=== PATIENT | female | born 1975 | race African-American/Black ===

== ENCOUNTER 2016-10-04 22:10 | Emergency (ER) | payer OTHER, MEDICAID ==
[2016-10-04 22:29] VITALS: BP 106/77; BMI 29.3
--- NOTE | 2016-10-04 22:45 | DR.GENAD ---
HPI - PCP Primary Care Physician: Marc JASON - Complaint/Symptoms Chief Complaint:: PATIENT BELIEVES SHE HAD AN ALLERGIC REACTION TO LISINOPRIL. PATIENT STATED," I WOKE UP AND MY LIP WAS SWOLLEN I WAS GASPING FOR AIR. MY THROAT WAS ITCHING AND HAD SEVERE ITCHING ALONG WITH DRY EYES." PT STATED ," I USED MY EPI-PEN AND THE SYMPTOMS GOT BETTER. Self Treatment fo Chief Complaint: PT USED EPI-PEN ABOUT 0 - Nurses notes reviewed Nurses Notes Review: Yes - Source History Provided: Patient - Mode of Arrival Mode of Arrival: Ambulatory - Timing Onset of Chief Complaint: 10/04/16 Came on: Suddenly - Duration Duration: Constant How lon Duration: Hours - Location Location: MOUTH - Severity Severity: Moderate - Modifying Factors Improves:: epi pen - Other History Other History: BETTER AFTER EPI-PEN PMH - PMH Past Medical History: Yes Past Medical History: COPD, Migraines, Hypertension, Seizures Past Medical History Comment: BILATERAL PE, NON-BLEEDING ULCER,CHRONIC BACK PAIN. DIVERTICULITIS. Past Surgical History: Yes Surgical History: Hysterectomy, Mastectomy Past Surgical History Comment: IVC FILTER, 3 BACK SURGERIES, POT-A-CATH,DOUBLE MASECTOMY, BREAST RECONSTRUCTION - Family History History of Family Medical Conditions: Yes Family Medical History: Diabetes Mellitus, Cancer, Heart Failure, Hypertension Family Medical History Comment: CVA - Social History Does patient currently use any type of tobacco product: No Have you used tobacco products in the last 12 months: No Type of Tobacco Use: None Does any household member use tobacco: No Alcohol Use: None Do you use any recreational Drugs:: No Lives With: Alone - infectious screening In the last 2 months have you had wt loss of >10#?: NO Have you had fever, night sweats or hemotysis?: No Have you traveled outside the country in the last 6 months?: No Isolation: Standard ROS - Review of Systems Constitutional: No Symptoms Reported Eyes: Other (SWELLING OF EYES) ENTM: Nose Congestion Respiratoy: Short of Breath Cardiovascular: No Symptoms Reported Gastrointestinal/Abdominal: No Symptoms Reported Genitourinary: No Symptoms Reported Neurological: No Symptoms Reported Musculoskeletal: No Symptoms Reported Integumentary: No Symptoms Reported Hematologic/Lymphatic: No Symptoms Reported Endocrine: No Symptoms Reported Psychiatric: Depression PE - Vital Signs Vitals: Temperature 99.2 F Pulse Rate 123 Respiratory Rate 20 Blood Pressure [Right Calf] 110/69 Blood Pressure [Left Calf] 107/60 Blood Pressure [Right Arm] 120/78 Blood Pressure 106/77 O2 Sat by Pulse Oximetry 100 - General Limitations: No Limitations General Appearance: Alert, In No Apparent Distress - Head Head Exam: Normal Inspection - Eyes Eye exam: Normal Appearance, EOMI. negative: Scleral Icterus, Conjunctival Injection, Periorbital Swelling - ENT ENT Exam: Normal Exam, Normal Oropharynx External Ear Exam: Normal External Inspection Nose Exam: Normal Nose Exam Mouth Exam: Normal Inspection. negative: Lip Swelling, Tongue Swelling Throat Exam: Normal Inspection. negative: Tonsillar Erythema - Neck Neck Exam: Normal Inspection, Full ROM, Trachea Midline - Chest Chest Inspection: Normal Inspection - Respiratory Respiratory Exam: Normal Lung Sounds Bilat. negative: Accessory Muscle Use, Respiratory Distress Respiratory Exam: Bilateral Clear to Auscultation - Cardiovascular Cardiovascular Exam: Regular Rate - Extremities Extremities Exam: Normal Inspection, Full ROM - Neurologic Neurological Exam: Alert, Oriented X3, CN II-XII Intact - Psychiatric Psychiatric Exam: Anxious - Skin Skin Exam: Intact, Normal Color Course - Treatment Treatment: PATIENT RATHER ASYMPTOMATIC IN ER. WILL GIVE PREDNISONE AND BENADRYL TO PREVENT REOCCURRENCE. TOLD TO STOP LISINOPRIL - Diagnosis Discharge Problem: Adverse reaction to lisinopril - Discharge Plan Condition: Stable Prescriptions: Prednisone [Prednisone DS Dosepak 10 mg (12 day)] 1 brittany PO ONCE #1 brittany - Follow ups/Referrals Follow ups/Referrals: MELANY JASON [Primary Care Provider] - 3 days - Instructions
[2016-10-04] MEDS ORDERED: PREDNISONE TAB 20 MG PO ONE ×2 (23:04→23:10)
[2016-10-04] MEDS ORDERED: BENADRYL CAP 50 MG PO ONE (23:05)
[2016-10-04] MEDS ORDERED: ATIVAN TAB 0.5 MG PO ONE (23:05)
[2016-10-04] MEDS ORDERED: BENADRYL CAP/TAB 25 MG PO ONE (23:11)
[2016-10-04] MEDS ORDERED: ATIVAN TAB 0.5 MG ONE (23:11)
== END 2016-10-04 23:40 | disposition home or self-care (01) ==
LOC: ER 22:10
DX: T78.40XA Allergy, unspecified, initial encounter (principal)
CPT/HCPCS: 99282; J7506

== ENCOUNTER 2016-10-08 11:38 | Emergency (ER) | payer OTHER, MEDICAID ==
[2016-10-08 11:44] VITALS: BP 140/88; BMI 28.1
--- NOTE | 2016-10-08 12:16 | DR.ALLERGY ---
HPI - PCP Primary Care Physician: Marc JASON - HPI Comment HPI Comment: HISTORY BELOW. - Complaint/Symptoms Chief Complaint Doctors Comments: ALLERGIC REACTION 3 DAYS AGO. N/V/D FROM [facility] SHE IS TAKING FOR ALLERGIC T REACTION. THROAT SWLLEN. UNABLE TO TAKE RAL MEDS INCLUDING PAIN MED. HAVING SEVERE HEADACHE. HISTORY MIGRAINE HEADACHE. Chief Complaint:: PT. STATES SHE IS HAVING AN ALLERGIC REACTION, STATES HER LIPS & TOUNGE ARE SWELLING AND HER THROAT FEELS TIGHT. - Source History Provided: Patient - Mode of Arrival Mode of Arrival: Ambulatory - Timing Onset of Chief Complaint: 10/06/16 Came on: Suddenly (STARTED 3 DAYS AGO. ON MEDS) - Context Exposed to: Medication, Other (comment) (LISINOPRIL) Developed: Wheezing, Shortness of breath, Difficulty swallowing, Throat swelling , Generalized erythema, Pruritis History of: Urticaria, Prior similar episodes (DUE TO LISINOPRIL) - Location Location: Tongue, Throat - Severity SOB: Moderate Swallowing: Moderate Rash: None Pruritis: Moderate - Modifying factors Improves: Diphenhydramine - Associated signs and symptoms Associated signs and symptoms: Abdominal pain, Chest pain PMH - PMH Past Medical History: Yes Past Medical History: COPD, Migraines, Hypertension, Seizures Past Surgical History: Yes Surgical History: Hysterectomy, Mastectomy Past Surgical History Comment: BILATERAL MASTECTOMY - Family History History of Family Medical Conditions: Yes Family Medical History: Diabetes Mellitus, Cancer, Heart Failure, Hypertension - Social History Does patient currently use any type of tobacco product: No Have you used tobacco products in the last 12 months: No Type of Tobacco Use: None Does any household member use tobacco: No Alcohol Use: None Do you use any recreational Drugs:: No Lives With: Alone Lives Where: Home - infectious screening In the last 2 months have you had wt loss of >10#?: NO Have you had fever, night sweats or hemotysis?: No Have you traveled outside the country in the last 6 months?: No Isolation: Standard ROS - Review of Systems Constitutional: Weakness, Fatigue. negative: Chills, Fever Eyes: No Symptoms Reported. negative: Eye Pain, Discharge ENTM: Mouth Pain, Throat Pain, Throat Swelling. negative: Ear Pain, Nose Discharge Respiratoy: Non-Productive Cough, Short of Breath, Wheezing. negative: Hemoptysis Cardiovascular: Chest Pain. negative: Edema, Palpitations Gastrointestinal/Abdominal: Abdominal Pain, Diarrhea, Nausea, Vomiting Genitourinary: No Symptoms Reported. negative: Dysuria, Frequency, Hematuria Neurological: Headache, Weakness, Dizziness Musculoskeletal: Muscle Pain Integumentary: Itching. negative: Rash Hematologic/Lymphatic: Easy Bruising Endocrine: No Symptoms Reported All Other Systems: Reviewed and Negative PE - Vitals Vital Signs: Temp Pulse Resp BP BP BP BP 10/08/16 11:39 98.2 F 99 H 16 140/88 10/04/16 22:12 106/77 06/27/16 08:00 110/69 06/25/16 16:00 107/60 10/24/13 20:00 120/78 Pulse Ox 10/08/16 11:39 98 10/04/16 22:12 06/27/16 08:00 06/25/16 16:00 10/24/13 20:00 - Constitutional Limitations: No Limitations General Appearance: Alert - Head Head Exam: Normal Inspection - Eyes Eye exam: Normal Appearance - ENT ENT Exam: Normal External Ear Exam Mouth Exam: Normal Inspection Throat Exam: Normal Inspection - Neck Neck Exam: Normal Inspection - Chest Chest Inspection: Normal Inspection - Respiratory Respiratory Exam: Normal Lung Sounds Bilat Respiratory Exam: Bilateral Clear to Auscultation - Cardiovascular Cardiovascular Exam: Regular Rate, Normal Rhythm, Normal Heart Sounds - Abdominal Exam Abdominal Exam: Normal Bowel Sounds, Soft, Tenderness Abdominal Tenderness: Diffuse, Moderate - Extremities Extremities Exam: Normal Inspection - Back Back Exam: Paraspinal Tenderness - Neurologic Neurological Exam: Alert, Oriented X3 - Psychiatric Psychiatric Exam: Anxious - Skin Skin Exam: Dry MDM - Differential Diagnosis Differential diagnosis: Drug reaction (ABDOMINAL PAIN, DIARRHEA), Respiratory insufficiency Course - Treatment Treatment: SEE ORDERS - Education/Counseling Education/Counseling: Patient, Education Educated On: Treatment, Diagnosis, Needs for Follow Up ROR - Labs Reviewed Laboratory Results Reviewed?: Yes Result Diagrams: 10/08/16 12:52 10/08/16 12:52 Laboratory: WBC 8.6 X10^3/uL (3.6-10.0) 10/08/16 12:52 RBC 4.42 X10^6/uL (3.5-5.4) 10/08/16 12:52 Hgb 12.3 g/dL (12.0-16.0) 10/08/16 12:52 Hct 36.9 % (36.0-47.0) 10/08/16 12:52 MCV 83.5 fL (80.0-100.0) 10/08/16 12:52 MCH 27.8 pg (27.0-34.0) 10/08/16 12:52 MCHC 33.2 g/dL (33.0-35.0) 10/08/16 12:52 RDW 14.0 % (11.6-16.5) 10/08/16 12:52 Plt Count 289 X10^3/uL (150.0-450.0) 10/08/16 12:52 MPV 7.6 fL (7.4-11.0) 10/08/16 12:52 Neut % 71.9 % (42.0-75.0) 10/08/16 12:52 Lymph % 22.1 % (21.0-51.0) 10/08/16 12:52 [place] % 4.6 % (0.0-13.0) 10/08/16 12:52 Eos % 1.0 % (0.9-2.9) 10/08/16 12:52 Baso % 0.4 % (0.2-1.0) 10/08/16 12:52 Neut # 6.2 x10^3/uL (2.2-4.8) H 10/08/16 12:52 Lymph # 1.9 X10^3/uL (1.3-2.9) 10/08/16 12:52 [place] # 0.4 x10^3/uL (0.3-0.8) 10/08/16 12:52 Eos # 0.1 x10^3/uL (0.0-0.2) 10/08/16 12:52 Baso # 0.0 X10^3/uL (0.0-0.1) 10/08/16 12:52 Absolute Nucleated RBC 0.0 /100WBC 10/08/16 12:52 Sample Site Right brachial 10/08/16 14:03 ABG pH 7.380 (7.35-7.45) 10/08/16 14:03 ABG pCO2 49.0 mmHg (35.0-45.0) H 10/08/16 14:03 ABG pO2 80.0 mmHg (80.0-100.0) 10/08/16 14:03 ABG HCO3 29.0 mmol/L (22-26) H 10/08/16 14:03 ABG O2 Saturation 95.0 % (90-100) 10/08/16 14:03 ABG Base Excess 3.1 mmol/L (-2.0-2.0) H 10/08/16 14:03 Scot Test Na 10/08/16 14:03 A-a Gradient 8.0 mmHg 10/08/16 14:03 FiO2 21 10/08/16 14:03 Blood Gas Comments [place] well aw 10/08/16 14:03 Sodium 142 mmol/L (136-145) 10/08/16 12:52 Corrected Sodium TNP 10/08/16 12:52 Potassium 3.7 mmol/L (3.5-5.1) 10/08/16 12:52 Chloride 106 mmol/L (98-107) 10/08/16 12:52 Carbon Dioxide 29.6 mmol/L (21-32) 10/08/16 12:52 BUN 12 mg/dL (7-18) 10/08/16 12:52 Creatinine 0.98 mg/dL (0.55-1.02) 10/08/16 12:52 Est GFR (MDRD) Af Amer > 60 (>60) 10/08/16 12:52 Est GFR (MDRD) Non-Af > 60 (>60) 10/08/16 12:52 Glucose 96 mg/dL (65-99) 10/08/16 12:52 Calcium 8.5 mg/dL (8.5-10.1) 10/08/16 12:52 Corrected Calcium TNP 10/08/16 12:52 Total Bilirubin 0.20 mg/dL (0.2-1.0) 10/08/16 12:52 AST 18 Units/L (15-37) 10/08/16 12:52 ALT 23 Units/L (12-78) 10/08/16 12:52 Alkaline Phosphatase 92 Units/L (46-116) 10/08/16 12:52 Total Protein 7.3 g/dL (6.4-8.2) 10/08/16 12:52 Albumin 3.4 g/dL (3.4-5.0) 10/08/16 12:52 Globulin 3.9 g/dL (2.5-4.5) 10/08/16 12:52 Albumin/Globulin Ratio 0.9 Ratio (1.1-2.1) L 10/08/16 12:52 Specimen Type Clean catch urine 10/08/16 13:22 Urine Color Yellow (YELLOW) 10/08/16 13:22 Urine Appearance Hazy (CLEAR) 10/08/16 13:22 Urine pH 6.0 (5.0 - 8.0) 10/08/16 13:22 Ur Specific [place] 1.020 (1.000-1.030) 10/08/16 13:22 Urine Protein Negative (NEGATIVE) 10/08/16 13:22 Urine Glucose (UA) Negative (NEGATIVE) 10/08/16 13:22 Urine Ketones Negative (NEGATIVE) 10/08/16 13:22 Urine Occult Blood Negative (NEGATIVE) 10/08/16 13:22 Urine Nitrite Negative (NEGATIVE) 10/08/16 13:22 Urine Bilirubin Negative (NEGATIVE) 10/08/16 13:22 Urine Urobilinogen Normal (NORMAL) 10/08/16 13:22 Ur Leukocyte Esterase 1+ (NEGATIVE) 10/08/16 13:22 Urine RBC 0 /HPF (NEGATIVE) 10/08/16 13:22 Urine WBC 2-3 /HPF (NEGATIVE) 10/08/16 13:22 Ur Squamous Epith Cells Moderate /HPF (NEGATIVE) 10/08/16 13:22 Urine Bacteria Negative /HPF (NEGATIVE) 10/08/16 13:22 Ur Culture Indicated? No/not indicated 10/08/16 13:22 - XRAY XRAY Interpreted by: Radiologist - Diagnosis Discharge Problem: Abdominal pain, Diarrhea, Allergic reaction - Discharge Plan Disposition: 01 HOME, SELF-CARE Condition: Stable - Follow ups/Referrals Follow ups/Referrals: MELANY JASON [Primary Care Provider] - 3 days - Instructions Instructions: Abdominal Pain, Adult, [id number], Diarrhea, Adult, Easy-to- Read, Allergies, [id number] Additional Instructions: RETURN TO ED IF WORSE. CONTINUE WITH MEDICATIONS AT HOME FOR ALLERGIC REACTION.
[2016-10-08] MEDS ORDERED: NS 1000 ML 1,000 ML IV ONE (12:28)
[2016-10-08] MEDS ORDERED: NS 1000 ML 1,000 ML ONE (12:48)
[2016-10-08 13:05] LABS: BASOPHILS % (AUTO) 0.4 % (0.2-1.0); EOSINOPHILS # (AUTO) 0.1 x10^3/uL (0.0-0.2); HEMATOCRIT 36.9 % (36.0-47.0); HEMOGLOBIN 12.3 g/dL (12.0-16.0); LYMPHOCYTES # (AUTO) 1.9 X10^3/uL (1.3-2.9); LYMPHOCYTES % (AUTO) 22.1 % (21.0-51.0); MEAN CORPUSCULAR HEMOGLOBIN 27.8 pg (27.0-34.0); MEAN CORPUSCULAR HGB CONC 33.2 g/dL (33.0-35.0); MEAN CORPUSCULAR VOLUME 83.5 fL (80.0-100.0); MEAN PLATELET VOLUME 7.6 fL (7.4-11.0); MONOCYTES # (AUTO) 0.4 x10^3/uL (0.3-0.8); MONOCYTES % (AUTO) 4.6 % (0.0-13.0); NEUTROPHILS # (AUTO) 6.2 x10^3/uL (2.2-4.8); NEUTROPHILS % (AUTO) 71.9 % (42.0-75.0); PLATELET COUNT 289 X10^3/uL (150.0-450.0); RED BLOOD COUNT 4.42 X10^6/uL (3.5-5.4); WHITE BLOOD COUNT 8.6 X10^3/uL (3.6-10.0)
[2016-10-08 13:15] LABS: ALANINE AMINOTRANSFERASE 23 Units/L (12-78); ALBUMIN 3.4 g/dL (3.4-5.0); ALKALINE PHOSPHATASE 92 Units/L (46-116); ASPARTATE AMINO TRANSFERASE 18 Units/L (15-37); BLOOD UREA NITROGEN 12 mg/dL (7-18); CALCIUM 8.5 mg/dL (8.5-10.1); CARBON DIOXIDE 29.6 mmol/L (21-32); CHLORIDE 106 mmol/L (98-107); CREATININE 0.98 mg/dL (0.55-1.02); GLUCOSE 96 mg/dL (65-99); SODIUM 142 mmol/L (136-145); TOTAL PROTEIN 7.3 g/dL (6.4-8.2); eGFR BLACK RACES > 60 (>60); eGFR NON BLACK RACES > 60 (>60)
[2016-10-08] MEDS ORDERED: PHENERGAN INJ 25 MG IV ONE (13:28)
[2016-10-08] MEDS ORDERED: DILAUDID INJ IVP ONE (13:29)
[2016-10-08] MEDS ORDERED: DILAUDID INJ ONE (13:37)
[2016-10-08] MEDS ORDERED: PHENERGAN INJ 25 MG ONE (13:37)
--- NOTE | 2016-10-08 13:37 | RAD ---
HISTORY: Abdominal pain and allergic reaction Study: Acute abdominal series Comparison: July 15, 2016 Findings: The trachea is midline. The cardiac silhouette is normal. There is an unchanged Port-A-Cath via the right subclavian vein.. The lungs are clear without focal infiltrate or effusion. The bony thorax is unremarkable. Flat plate and upright evaluation of the abdomen demonstrates a filter in the IVC. The bowel gas pat tern is normal. There are lower lumbar unchanged fusion rods and screws.. No pathological soft tiss ue mass or calcification can be observed. . IMPRESSION: 1. No acute cardiopulmonary disease. 2. No evidence for acute abdominal pathology identified. Reported By:
[2016-10-08 13:52] LABS: BILIRUBIN,URINE NEGATIVE (NEGATIVE); BLOOD/HEMOGLOBIN,URINE NEGATIVE (NEGATIVE); GLUCOSE, URINE NEGATIVE (NEGATIVE); KETONES,URINE NEGATIVE (NEGATIVE); LEUKOCYTE ESTERASE ,URINE 1+ (NEGATIVE); NITRITES,URINE NEGATIVE (NEGATIVE); PROTEIN,URINE NEGATIVE (NEGATIVE); UROBILINOGEN,URINE NORMAL (NORMAL)
[2016-10-08 14:01] LABS: APPEARANCE,URINE HAZY (CLEAR); BACTERIA,URINE NEGATIVE /HPF (NEGATIVE); COLOR,URINE YELLOW (YELLOW); RBC,URINE 0 /HPF (NEGATIVE); SQUAMOUS EPITHELIAL CELL,UR MODERATE /HPF (NEGATIVE)
[2016-10-08 14:16] LABS: ABG BASE EXCESS 3.1 mmol/L (-2.0-2.0); FRACTIONATED INSPIRED OXYGEN 21
== END 2016-10-08 14:34 | disposition home or self-care (01) ==
LOC: ER 11:58
DX: T46.4X5A Adverse effect of angiotensin-converting-enzyme inhibitors, initial encounter (principal); R10.84 Generalized abdominal pain; R19.7 Diarrhea, unspecified
CPT/HCPCS: 36415; 36591; 36600; 74022; 80053; 81001; 82803; 85025; 96365; 96374; 96375; 99283; J1170; J2550

== ENCOUNTER 2016-12-31 22:19 | Emergency (ER) | payer OTHER, MEDICAID ==
[2016-12-31 22:42] VITALS: BP 131/73; BMI 27.5
[2016-12-31] MEDS ORDERED: PHENERGAN INJ 25 MG IV ONE (23:03)
[2016-12-31] MEDS ORDERED: DILAUDID INJ IM ONE (23:03)
--- NOTE | 2016-12-31 23:03 | DR.GENAD ---
HPI - PCP Primary Care Physician: Terri - HPI Comment HPI Comment: PATIENT ON HOME PAIN MEDS. HEADACHE WITH NAUSEA AND PHOTOPHOBIA. UNABLE TO TAKE ORAL PAIN MED. HISTORY MIGRAINE HEADACHE. SHE SAID THIS IS A MIGRAINE ATTACK. HER MUSCLES HURTS AND CHEST ALSO HURTS. NO FEVER. - Complaint/Symptoms Chief Complaint Doctors Comments: PATIENT HAVE HEADACHE AND CHEST PAIN SINCE YESTERDAY. Chief Complaint:: "Last night around 2 AM my head and chest started hurting really bad. I have not taken my meds since ." - Nurses notes reviewed Nurses Notes Review: Yes - Source History Provided: Patient - Mode of Arrival Mode of Arrival: Ambulatory - Timing Onset of Chief Complaint: 12/30/16 Came on: Suddenly - Duration Duration: Constant Duration: Days - Severity Severity: Moderate PMH - PMH Past Medical History: Yes Past Medical History: COPD, Migraines, Hypertension, Seizures Past Surgical History: Yes Surgical History: Hysterectomy, Mastectomy - Family History History of Family Medical Conditions: Yes Family Medical History: Diabetes Mellitus, Cancer, Heart Failure, Hypertension - Social History Does patient currently use any type of tobacco product: No Have you used tobacco products in the last 12 months: No Type of Tobacco Use: None Does any household member use tobacco: No Alcohol Use: None Do you use any recreational Drugs:: No Lives With: Alone Lives Where: Home - infectious screening In the last 2 months have you had wt loss of >10#?: NO Have you had fever, night sweats or hemotysis?: No Have you traveled outside the country in the last 6 months?: No Isolation: Standard ROS - Review of Systems Constitutional: Weakness, Fatigue Eyes: Photophobia ENTM: Nose Congestion. negative: Ear Pain, Nose Discharge, Throat Pain Respiratoy: Non-Productive Cough. negative: Productive Cough, Short of Breath, Wheezing, Hemoptysis Cardiovascular: Chest Pain. negative: Edema, Palpitations, Syncope Gastrointestinal/Abdominal: Abdominal Pain, Nausea. negative: Constipation, Diarrhea, Vomiting Genitourinary: No Symptoms Reported. negative: Dysuria, Frequency, Hematuria Neurological: Headache, Numbness, Weakness, Dizziness Musculoskeletal: Joint Pain, Muscle Pain Integumentary: negative: Rash, Juandice Hematologic/Lymphatic: Easy Bruising Endocrine: No Symptoms Reported All Other Systems: Reviewed and Negative PE - Vital Signs Vitals: Temperature 98.9 F Pulse Rate 105 Respiratory Rate 20 Blood Pressure [Right Calf] 110/69 Blood Pressure [Left Calf] 107/60 Blood Pressure [Right Arm] 120/78 Blood Pressure 131/73 O2 Sat by Pulse Oximetry 100 - General Limitations: No Limitations General Appearance: Alert - Head Head Exam: Normal Inspection - Eyes Eye exam: Normal Appearance - ENT ENT Exam: Normal External Ear Exam External Ear Exam: Normal External Inspection TM/Canal Exam: Bilateral Normal Nose Exam: Normal Nose Exam Mouth Exam: Normal Inspection Throat Exam: Normal Inspection - Neck Neck Exam: Normal Inspection - Chest Chest Inspection: Symmetric Chest Wall Rise - Respiratory Respiratory Exam: Normal Lung Sounds Bilat Respiratory Exam: Bilateral Clear to Auscultation - Cardiovascular Cardiovascular Exam: Regular Rate, Normal Rhythm, Normal Heart Sounds - Abdominal Exam Abdominal Exam: Normal Bowel Sounds, Tenderness Abdominal Tenderness: Diffuse, Mild - Extremities Extremities Exam: Normal Inspection - Back Back Exam: Paraspinal Tenderness, Vertebral Tenderness, Rashes - Neurologic Neurological Exam: Alert, Oriented X3, CN II-XII Intact, Normal Gait, Reflexes Normal - Psychiatric Psychiatric Exam: Anxious - Skin Skin Exam: Erythema MDM - Additional Information Additional Information Obtained From: Family - Differential Diagnosis Differential Diagnosis: MIGTAINE HEADACHE, CHRONIC PAIN, ACUTE EXACERBATION. Course - Treatment Treatment: SEE ORDER. PAIN MED IN ED IV. PAIN IMPROVING. - Education/Counseling Education/Counseling: Patient, Education Educated On: Diagnosis, Needs for Follow Up - Diagnosis Discharge Problem: Chronic pain Qualifiers: Chronic pain type: chronic pain syndrome Qualified Code(s): G89.4 - Chronic pain syndrome Migraine Qualifiers: Migraine type: with aura Status migrainosus presence: with status migrainosus Intractability: intractable Qualified Code(s): G43.111 - Migraine with aura, intractable, with status migrainosus - Discharge Plan Disposition: HOME, SELF-CARE Condition: Stable - Follow ups/Referrals Follow ups/Referrals: DANNI JASON [Primary Care Provider] - 1 day - Instructions Instructions: Migraine Headache, Chronic Pain Additional Instructions: RETURN TO ED IF WORSE. CONTINUE PAIN AT HOME.
[2016-12-31] MEDS ORDERED: DILAUDID INJ ONE (23:10)
[2016-12-31] MEDS ORDERED: PHENERGAN INJ 25 MG ONE (23:10)
[2016-12-31] MEDS ORDERED: DILAUDID INJ IVP ONE (23:11)
[2016-12-31] MEDS ORDERED: BENADRYL INJ 50 MG VIAL ONE (23:31)
[2016-12-31] MEDS ORDERED: BENADRYL INJ 50 MG VIAL IV ONE (23:32)
== END 2017-01-01 00:38 | disposition home or self-care (01) ==
LOC: ER 22:33
DX: G43.111 Migraine with aura, intractable, with status migrainosus (principal); G89.4 Chronic pain syndrome
CPT/HCPCS: 93005; 93010; 96365; 96374; 96375; 99282; 99283; J1170; J1200; J2550

== ENCOUNTER 2017-01-24 05:45 | Emergency (ER) | payer OTHER, MEDICAID ==
[2017-01-24 05:55] VITALS: BP 109/83; BMI 29.2
[2017-01-24 06:39] LABS: BILIRUBIN,URINE NEGATIVE (NEGATIVE); BLOOD/HEMOGLOBIN,URINE NEGATIVE (NEGATIVE); GLUCOSE, URINE NEGATIVE (NEGATIVE); KETONES,URINE NEGATIVE (NEGATIVE); LEUKOCYTE ESTERASE ,URINE 1+ (NEGATIVE); NITRITES,URINE POSITIVE (NEGATIVE); PROTEIN,URINE 1+ (NEGATIVE); UROBILINOGEN,URINE NORMAL (NORMAL)
--- NOTE | 2017-01-24 06:45 | DR.GENAD ---
HPI - PCP Primary Care Physician: MELANY JASON - Complaint/Symptoms Chief Complaint Doctors Comments: I agree with statement. Patient patel states that she is scheduled for an EGD but this has to be delayed because the insurance with not cover her colonoscopy and EGD. She admits to severe LLQ pain w/o radiating. Chief Complaint:: "I WOKE UP IN PAIN, I HAVE BEEN HAVING A LOW GRADE FEVER FOR THE LAST 3-4 DAYS. I AM HAVING ABD PAIN ON MY LEFT SIDE PROBABLY MY DIVERTICULITIS MAYBE A UTI. OH I NEED TO ADD MIGRAINE TO MY COMPLAINTS. I HAVE BEEN HAVING BLACK MUCUS FOR SOME TIME. I DON'T WANT PNEUMONIA BUT HEY I HAVE HAD IT BEFORE. OH AND I AM HAVING SOME SHARP STABBING PAINS ON MY RIGHT SIDE. I CAN'T BREATHE , I JUST FEEL LIKE I AM DROWNING IN MY ON MUCUS. AND OF COURSE THIS IS ALL CAUSING MY CHEST TO BE TIGHT. AND THEN THIS COULD BE JUST MY LUPUS FLARING UP. SINCE THEY HAVE DISCOVERED THIS, IT JUST CHANGES EVERYTHING. MY LIFE " - Source History Provided: Patient - Mode of Arrival Mode of Arrival: Ambulatory - Timing Onset of Chief Complaint: 01/21/17 <VIVIANA HARMON - Last Filed: 01/24/17 08:07> PMH - PMH Past Medical History: Yes Past Medical History: COPD, Migraines, Hypertension, Seizures Past Medical History Comment: lupus Past Surgical History: Yes Surgical History: Hysterectomy, Mastectomy Past Surgical History Comment: BILATERAL MASTECTOMY - Family History History of Family Medical Conditions: Yes Family Medical History: Diabetes Mellitus, Cancer, Heart Failure, Hypertension - Social History Does patient currently use any type of tobacco product: No Have you used tobacco products in the last 12 months: No Type of Tobacco Use: None Does any household member use tobacco: No Alcohol Use: None Do you use any recreational Drugs:: No Lives Where: Home - infectious screening Have you traveled outside the country in the last 6 months?: No Isolation: Standard <VIVIANA HARMON - Last Filed: 01/24/17 08:07> ROS - Review of Systems Constitutional: No Symptoms Reported Eyes: No Symptoms Reported ENTM: No Symptoms Reported Respiratoy: No Symptoms Reported Cardiovascular: No Symptoms Reported Gastrointestinal/Abdominal: No Symptoms Reported Genitourinary: No Symptoms Reported Neurological: No Symptoms Reported Musculoskeletal: No Symptoms Reported Integumentary: No Symptoms Reported Hematologic/Lymphatic: No Symptoms Reported, See HPI Endocrine: No Symptoms Reported Psychiatric: No Symptoms Reported All Other Systems: Reviewed and Negative <VIVIANA HARMON - Last Filed: 01/24/17 08:07> PE - General Limitations: No Limitations General Appearance: Alert, In No Apparent Distress - Head Head Exam: Normal Inspection, Atraumatic - Eyes Eye exam: Normal Appearance, PERRL, EOMI - ENT ENT Exam: Normal Exam External Ear Exam: Normal External Inspection TM/Canal Exam: Bilateral Normal Nose Exam: Normal Nose Exam Mouth Exam: Normal Inspection Throat Exam: Normal Inspection - Neck Neck Exam: Normal Inspection, Full ROM - Chest Chest Inspection: Normal Inspection - Respiratory Respiratory Exam: Normal Lung Sounds Bilat - Cardiovascular Cardiovascular Exam: Regular Rate - Abdominal Exam Abdominal Exam: Normal Inspection, Normal Bowel Sounds, Tenderness (suprapubic) . negative: Distention Abdominal Tenderness: LLQ - Extremities Extremities Exam: Normal Inspection, Full ROM - Back Back Exam: Normal Inspection - Neurologic Neurological Exam: Alert, Oriented X3, CN II-XII Intact - Psychiatric Psychiatric Exam: Normal Affect - Skin Skin Exam: Warm, Dry <VIVIANA HARMON - Last Filed: 01/24/17 08:07> ROR - Labs Reviewed Laboratory Results Reviewed?: Yes (UA: leuk +1,WBC 5-10) Result Diagrams: 01/24/17 07:00 01/24/17 07:00 <VIVIANA HARMON - Last Filed: 01/24/17 08:07> - Labs Reviewed Result Diagrams: 01/24/17 07:00 01/24/17 07:00 <WILLIAM BONILLA - Last Filed: 01/24/17 18:48> - Labs Reviewed Laboratory: WBC 5.5 X10^3/uL (3.6-10.0) 01/24/17 07:00 RBC 4.25 X10^6/uL (3.5-5.4) 01/24/17 07:00 Hgb 12.0 g/dL (12.0-16.0) 01/24/17 07:00 Hct 35.0 % (36.0-47.0) L 01/24/17 07:00 MCV 82.4 fL (80.0-100.0) 01/24/17 07:00 MCH 28.3 pg (27.0-34.0) 01/24/17 07:00 MCHC 34.3 g/dL (33.0-35.0) 01/24/17 07:00 RDW 13.8 % (11.6-16.5) 01/24/17 07:00 Plt Count 239 X10^3/uL (150.0-450.0) 01/24/17 07:00 MPV 7.6 fL (7.4-11.0) 01/24/17 07:00 Neut % 49.8 % (42.0-75.0) 01/24/17 07:00 Lymph % 40.1 % (21.0-51.0) 01/24/17 07:00 [place] % 8.3 % (0.0-13.0) 01/24/17 07:00 Eos % 1.2 % (0.9-2.9) 01/24/17 07:00 Baso % 0.6 % (0.2-1.0) 01/24/17 07:00 Neut # 2.7 x10^3/uL (2.2-4.8) 01/24/17 07:00 Lymph # 2.2 X10^3/uL (1.3-2.9) 01/24/17 07:00 [place] # 0.5 x10^3/uL (0.3-0.8) 01/24/17 07:00 Eos # 0.1 x10^3/uL (0.0-0.2) 01/24/17 07:00 Baso # 0.0 X10^3/uL (0.0-0.1) 01/24/17 07:00 Absolute Nucleated RBC 0.0 /100WBC 01/24/17 07:00 Sodium 140 mmol/L (136-145) 01/24/17 07:00 Corrected Sodium TNP 01/24/17 07:00 Potassium 3.7 mmol/L (3.5-5.1) 01/24/17 07:00 Chloride 103 mmol/L (98-107) 01/24/17 07:00 Carbon Dioxide 32.0 mmol/L (21-32) 01/24/17 07:00 BUN 14 mg/dL (7-18) 01/24/17 07:00 Creatinine 0.91 mg/dL (0.55-1.02) 01/24/17 07:00 Est GFR (MDRD) Af Amer > 60 (>60) 01/24/17 07:00 Est GFR (MDRD) Non-Af > 60 (>60) 01/24/17 07:00 Glucose 94 mg/dL (65-99) 01/24/17 07:00 Calcium 8.6 mg/dL (8.5-10.1) 01/24/17 07:00 Corrected Calcium 9.2 mg/dL (8.5-10.1) 01/24/17 07:00 Total Bilirubin 0.30 mg/dL (0.2-1.0) 01/24/17 07:00 AST 21 Units/L (15-37) 01/24/17 07:00 ALT 25 Units/L (12-78) 01/24/17 07:00 Alkaline Phosphatase 97 Units/L (46-116) 01/24/17 07:00 C-Reactive Protein 44.80 mg/L (0-3.0) H 01/24/17 07:00 Total Protein 7.7 g/dL (6.4-8.2) 01/24/17 07:00 Albumin 3.3 g/dL (3.4-5.0) L 01/24/17 07:00 Globulin 4.4 g/dL (2.5-4.5) 01/24/17 07:00 Albumin/Globulin Ratio 0.8 Ratio (1.1-2.1) L 01/24/17 07:00 Amylase 121 Units/L (25-115) H 01/24/17 07:00 Lipase 126 Units/L (73-393) 01/24/17 07:00 Specimen Type Clean catch urine 01/24/17 06:19 Urine Color Yellow (YELLOW) 01/24/17 06:19 Urine Appearance Hazy (CLEAR) 01/24/17 06:19 Urine pH 7.0 (5.0 - 8.0) 01/24/17 06:19 Ur Specific [place] 1.010 (1.000-1.030) 01/24/17 06:19 Urine Protein 1+ (NEGATIVE) 01/24/17 06:19 Urine Glucose (UA) Negative (NEGATIVE) 01/24/17 06:19 Urine Ketones Negative (NEGATIVE) 01/24/17 06:19 Urine Occult Blood Negative (NEGATIVE) 01/24/17 06:19 Urine Nitrite Positive (NEGATIVE) 01/24/17 06:19 Urine Bilirubin Negative (NEGATIVE) 01/24/17 06:19 Urine Urobilinogen Normal (NORMAL) 01/24/17 06:19 Ur Leukocyte Esterase 1+ (NEGATIVE) 01/24/17 06:19 Urine RBC 0-3 /HPF (NEGATIVE) 01/24/17 06:19 Urine WBC 5-10 /HPF (NEGATIVE) 01/24/17 06:19 Ur Squamous Epith Cells Moderate /HPF (NEGATIVE) 01/24/17 06:19 Urine Bacteria 1+ /HPF (NEGATIVE) 01/24/17 06:19 Ur Culture Indicated? Yes/culture set up 01/24/17 06:19 (WILLIAM BONILLA) <VIVIANA HARMON - Last Filed: 01/24/17 08:07> <WILLIAM BONILLA - Last Filed: 01/24/17 18:48> - Diagnosis Discharge Problem: Colitis - Discharge Plan Disposition: 01 HOME, SELF-CARE Condition: Stable Prescriptions: Sulfamethoxazole-Trimethoprim [BACTRIM DS TAB 800/160 MG *] 1 tab PO BID #20 tab - Follow ups/Referrals Follow ups/Referrals: MELANY JASON [Primary Care Provider] - 3 days - Instructions Instructions: Urinary Tract Infection, [id number], Urinary Tract Infection, Flank Pain, [id number]
[2017-01-24 07:04] LABS: APPEARANCE,URINE HAZY (CLEAR); BACTERIA,URINE 1+ /HPF (NEGATIVE); COLOR,URINE YELLOW (YELLOW); RBC,URINE 0-3 /HPF (NEGATIVE); SQUAMOUS EPITHELIAL CELL,UR MODERATE /HPF (NEGATIVE)
[2017-01-24] MEDS ORDERED: D5 NS 1000 ML 1,000 ML IV ONE (07:09)
[2017-01-24 07:22] LABS: BASOPHILS % (AUTO) 0.6 % (0.2-1.0); EOSINOPHILS # (AUTO) 0.1 x10^3/uL (0.0-0.2); EOSINOPHILS % (AUTO) 1.2 % (0.9-2.9); LYMPHOCYTES # (AUTO) 2.2 X10^3/uL (1.3-2.9); LYMPHOCYTES % (AUTO) 40.1 % (21.0-51.0); MEAN CORPUSCULAR HEMOGLOBIN 28.3 pg (27.0-34.0); MEAN CORPUSCULAR HGB CONC 34.3 g/dL (33.0-35.0); MEAN CORPUSCULAR VOLUME 82.4 fL (80.0-100.0); MEAN PLATELET VOLUME 7.6 fL (7.4-11.0); MONOCYTES # (AUTO) 0.5 x10^3/uL (0.3-0.8); MONOCYTES % (AUTO) 8.3 % (0.0-13.0); NEUTROPHILS # (AUTO) 2.7 x10^3/uL (2.2-4.8); NEUTROPHILS % (AUTO) 49.8 % (42.0-75.0); PLATELET COUNT 239 X10^3/uL (150.0-450.0); RED BLOOD COUNT 4.25 X10^6/uL (3.5-5.4); RED CELL DISTRIBUTION WIDTH 13.8 % (11.6-16.5); WHITE BLOOD COUNT 5.5 X10^3/uL (3.6-10.0)
[2017-01-24 07:33] LABS: ALANINE AMINOTRANSFERASE 25 Units/L (12-78); ALBUMIN 3.3 g/dL (3.4-5.0); ALKALINE PHOSPHATASE 97 Units/L (46-116); AMYLASE 121 Units/L (25-115); ASPARTATE AMINO TRANSFERASE 21 Units/L (15-37); BLOOD UREA NITROGEN 14 mg/dL (7-18); CALCIUM 8.6 mg/dL (8.5-10.1); CHLORIDE 103 mmol/L (98-107); COR CA(FOR HYPOALB) 9.2 mg/dL (8.5-10.1); CREATININE 0.91 mg/dL (0.55-1.02); GLUCOSE 94 mg/dL (65-99); LIPASE 126 Units/L (73-393); SODIUM 140 mmol/L (136-145); TOTAL PROTEIN 7.7 g/dL (6.4-8.2); eGFR BLACK RACES > 60 (>60); eGFR NON BLACK RACES > 60 (>60)
[2017-01-24] MEDS ORDERED: DEMEROL INJ IVP ONE (07:33)
[2017-01-24] MEDS ORDERED: PHENERGAN INJ 25 MG IV ONE (07:34)
[2017-01-24] MEDS ORDERED: PHENERGAN INJ 25 MG ONE (07:35)
[2017-01-24] MEDS ORDERED: DEMEROL INJ ONE (07:35)
[2017-01-24] MEDS ORDERED: MORPHINE SULFATE INJ 4 MG IVP ONE (07:39)
[2017-01-24] MEDS ORDERED: MORPHINE SULFATE INJ 4 MG ONE (07:40)
--- NOTE | 2017-01-24 08:38 | CT ---
CT abdomen pelvis without contrast Clinical indication: Left lower quadrant pain x3 days. Technique: CT images of the abdomen and pelvis were obtained without contrast. Reformatted images in the coronal and sagittal planes were also generated for review. Comparison: May 31, 2015 Findings: The visualized lung bases appear clear. There is no significant pleural or pericardial effusion. Par tially visualized bilateral breast implants are noted. Posterior fusion hardware at the lumbosacral junction is present. There is patchy sclerosis of the bilateral femoral heads, suggestive of osteone crosis without articular collapse or significant arthropathy of either hip. Within the limits of a noncontrast exam, the liver, gallbladder, spleen, pancreas, adrenals and kidn eys are unremarkable. There is colonic diverticulosis with mild pericolonic inflammatory stranding a bout the mid-descending colon, compatible with acute diverticulitis. No associated abscess or eviden ce of micro perforation. Remaining GI tract, including the appendix appears normal. An IVC filter appears well positioned within the infrarenal IVC. Urinary bladder is normal. Patient is post hysterectomy. No free air, free fluid or lymphadenopathy seen. Impression: Findings compatible with acute uncomplicated diverticulitis of the mid descending colon. Stable patchy sclerosis of the bilateral femoral heads, suggestive of osteonecrosis without subchond ral collapse. Additional ancillary findings as above. Reported By:
[2017-01-24] MEDS ORDERED: BACTRIM DS TAB PO ONE ×2 (09:07→09:09)
== END 2017-01-24 09:19 | disposition home or self-care (01) ==
LOC: ER 05:45
DX: K52.89 Other specified noninfective gastroenteritis and colitis (principal); B96.29 Other Escherichia coli [E. coli] as the cause of diseases classified elsewhere
CPT/HCPCS: 36415; 74176; 80053; 81001; 82150; 83690; 85025; 86140; 87086; 87088; 87186; 96365; 96374; 96375; 99283; J2175; J2270; J2550

== ENCOUNTER 2017-01-31 07:18 | Day surgery (SDC) | payer OTHER, MEDICAID ==
[2017-01-31] MEDS ORDERED: NS 1000 ML 1,000 ML ONE (07:26)
[2017-01-31] MEDS ORDERED: BENADRYL INJ 50 MG VIAL ONE (07:53)
[2017-01-31] MEDS ORDERED: DIPRIVAN VIAL 20 ML ONE (09:24)
[2017-01-31 10:03] VITALS: BP 115/78
== END 2017-01-31 10:03 | disposition home or self-care (01) ==
LOC: SURG1 07:18
PROVIDERS: ATTEND Internal Medicine Gastroenterology
PROC: 0D757ZZ Dilation of Esophagus, Via Natural or Artificial Opening (ICD-10-PCS; principal; 2017-01-31 09:45)
PROC: 0DB68ZX Excision of Stomach, Via Natural or Artificial Opening Endoscopic, Diagnostic (ICD-10-PCS; principal; 2017-01-31 09:45)
PROC: 0DB88ZX Excision of Small Intestine, Via Natural or Artificial Opening Endoscopic, Diagnostic (ICD-10-PCS; principal; 2017-01-31 09:45)
PROC: 0DB58ZX Excision of Esophagus, Via Natural or Artificial Opening Endoscopic, Diagnostic (ICD-10-PCS; principal; 2017-01-31 09:45)
PROC: 0DJ08ZZ Inspection of Upper Intestinal Tract, Via Natural or Artificial Opening Endoscopic (ICD-10-PCS; principal; 2017-01-31 09:45)
DX: R13.19 Other dysphagia (principal); R10.13 Epigastric pain; R11.0 Nausea; K21.9 Gastro-esophageal reflux disease without esophagitis; R19.7 Diarrhea, unspecified; B37.81 Candidal esophagitis; K22.2 Esophageal obstruction; K29.60 Other gastritis without bleeding
CPT/HCPCS: A4217; J1200; J3490

== ENCOUNTER 2017-03-07 09:05 | Day surgery (SDC) | payer OTHER, MEDICAID ==
[2017-03-07] MEDS ORDERED: D5 LR 1000 ML 1,000 ML IV ONE (09:32)
[2017-03-07] MEDS ORDERED: DIPRIVAN VIAL 20 ML ONE (10:15)
[2017-03-07] MEDS ORDERED: ZOFRAN INJ 4 MG VIAL ONE (10:17)
[2017-03-07 11:13] VITALS: BP 111/72
== END 2017-03-07 11:05 | disposition home or self-care (01) ==
LOC: SURG1 09:05
PROVIDERS: ATTEND Internal Medicine Gastroenterology
PROC: 0DBE8ZX Excision of Large Intestine, Via Natural or Artificial Opening Endoscopic, Diagnostic (ICD-10-PCS; principal; 2017-03-07 07:30)
PROC: 0DJD8ZZ Inspection of Lower Intestinal Tract, Via Natural or Artificial Opening Endoscopic (ICD-10-PCS; principal; 2017-03-07 07:30)
DX: R19.4 Change in bowel habit (principal); R10.31 Right lower quadrant pain; R10.32 Left lower quadrant pain; K92.1 Melena; K57.30 Diverticulosis of large intestine without perforation or abscess without bleeding; K64.0 First degree hemorrhoids
CPT/HCPCS: A4217; J2405; J3490; J7120

== ENCOUNTER 2017-03-16 00:16 | Emergency (ER) | payer OTHER, MEDICAID ==
[2017-03-16 00:26] VITALS: BP 105/67; BMI 28.5
[2017-03-16] MEDS ORDERED: ATARAX TAB 25 MG PO ONE ×2 (00:52→01:05)
[2017-03-16] MEDS ORDERED: KEFLEX CAP 500 MG PO ONE ×2 (00:53→01:04)
[2017-03-16] MEDS ORDERED: ZANTAC PO STA (00:53)
[2017-03-16] MEDS ORDERED: BACTRIM DS TAB PO ONE ×2 (00:54→01:05)
[2017-03-16] MEDS ORDERED: MOTRIN TAB 400 MG PO STA (00:55)
--- NOTE | 2017-03-16 00:59 | DR.GENAD ---
HPI - Complaint/Symptoms Chief Complaint Doctors Comments: Patient complains of area redness, itching and pain on her right arm all day long. States she thinks she was bit by a spider but she did not see a spider. states initially she thought she was stung by a mosquito because that is what it felt like and she started to itch. States she has taken Benadryl 100mg today for the itching. She denies fever, chills, nausea or vomiting. States she can take Aleve and ADvil and motrin without problems but she is allergic to most other pain medicines and the only safe thing they could give her for pain is Morphine. States she is a patient of [facility] and she is not sure when she had her last tetanus shot. States she is not going to take a tetanus shot tonight because they hurt. States she had Septra recently and it made her have yeast infection in her mouth. States she has had several back surgeries. States she is having problems with the itching and pain in her right arm. Chief Complaint:: POSSIBLE SPIDER BITE. RED AREA NOTED ON RT UPPER ARM. 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 negative: See HPI, Chills, Diaphoresis, Fever, Malaise, Weakness, Irritable, Fatigue, Loss of Appetite, Other Eyes: No Symptoms Reported ENTM: No Symptoms Reported. negative: See HPI, Ear Pain, Ear Discharge, Pulling on Ears, Hearing Loss, Nose Pain, Nose Discharge, Epistaxis, Nose Congestion, Mouth Pain, Mouth Swelling, Loose Teeth, Drooling, Throat Pain, Throat Swelling, Ear Foreign Body Respiratoy: No Symptoms Reported. negative: See HPI, Productive Cough, Non- Productive Cough, Moist Cough, Dry Cough, Hacking Cough, Barking Cough, Brassy Cough, Orthopnea, Short of Breath, Stridor, Wheezing, Hemoptysis, Other Cardiovascular: No Symptoms Reported. negative: See HPI, Chest Pain, Edema, Palpitations, Syncope, Cyanosis, Skin Mottling, Other Gastrointestinal/Abdominal: No Symptoms Reported. negative: See HPI, Abdominal Pain, Constipation, Diarrhea, Nausea, Vomiting, Food Intolerance, Other Genitourinary: No Symptoms Reported. negative: See HPI, Discharge, Dysuria, Frequency, Hematuria, Pain, Bleeding, Other Neurological: No Symptoms Reported Musculoskeletal: No Symptoms Reported, Right, Arm (6 cm area erythma with papule in center; no discharge) Integumentary: No Symptoms Reported, Change in Color, Rash, Itching (right arm with area erythema,upper arm) Hematologic/Lymphatic: No Symptoms Reported Endocrine: No Symptoms Reported Psychiatric: No Symptoms Reported PE - Vital Signs Vitals: Temperature 98.0 F Pulse Rate 98 Respiratory Rate 17 Blood Pressure [Right Calf] 110/69 Blood Pressure [Left Calf] 107/60 Blood Pressure [Right Arm] 120/78 Blood Pressure 105/67 O2 Sat by Pulse Oximetry 99 - General Limitations: No Limitations General Appearance: Alert, In No Apparent Distress - Head Head Exam: Normal Inspection, Atraumatic, Normocephalic - Eyes Eye exam: Normal Appearance, PERRL, EOMI. negative: Scleral Icterus, Conjunctival Injection, Nystagmus, Miosis, Mydrasis, Periorbital Swelling, Periorbital Tenderness, Other - ENT ENT Exam: Normal Exam, Normal Oropharynx, Normal External Ear Exam, Mucous Membranes Moist, TM's Normal Bilaterally External Ear Exam: Normal External Inspection TM/Canal Exam: Bilateral Normal Nose Exam: Normal Nose Exam Mouth Exam: Normal Inspection. negative: Drooling, Trismus, Lip Swelling, Tongue Elevation, Tongue Swelling, Laceration, Other Throat Exam: Normal Inspection - Neck Neck Exam: Normal Inspection, Full ROM, Trachea Midline. negative: Tenderness, Meningismus, Lymphadenopathy, Thyromegaly, Other - Chest Chest Inspection: Normal Inspection, Symmetric Chest Wall Rise. negative: Tenderness, Rash, Abscess, Other - Respiratory Respiratory Exam: Normal Lung Sounds Bilat Respiratory Exam: Bilateral Clear to Auscultation - Cardiovascular Cardiovascular Exam: Regular Rate, Normal Rhythm, Normal Heart Sounds - Abdominal Exam Abdominal Exam: Normal Inspection, Normal Bowel Sounds, Soft Abdominal Tenderness: negative: RUQ, RLQ, LUQ, LLQ, Epigastrium, Suprapubic, Diffuse, Mild, Moderate, Severe, Other - Extremities Extremities Exam: Normal Inspection, Full ROM, Normal Capillary Refill. negative: Tenderness (right arm with 6 cm area erythema, firm, macular lesion) - Back Back Exam: Normal Inspection, Full ROM - Neurologic Neurological Exam: Alert, Oriented X3, CN II-XII Intact, Normal Gait, Reflexes Normal - Psychiatric Psychiatric Exam: Normal Affect, Normal Mood - Skin Skin Exam: Warm, Dry, Intact, Normal Color, Rash (right upper arm on biceps; macular area erythema 6x8 cm; no discharge), Erythema - Diagnosis Discharge Problem: Cellulitis of right upper arm, possible insect bite - Discharge Plan Disposition: HOME, SELF-CARE Condition: Stable Prescriptions: Cephalexin [KEFLEX CAP 500 MG *] 500 mg PO TID #30 cap Fluconazole [DIFLUCAN TAB 150 MG *] 150 mg PO ONCE #2 tab Hydroxyzine HCl 25 mg Tab [ATARAX *] 25 mg PO Q8H PRN #30 tab PRN Reason: Allergy/Itching Sulfamethoxazole-Trimethoprim [BACTRIM DS TAB 800/160 MG *] 1 tab PO BID #20 tab - Follow ups/Referrals Follow ups/Referrals: MELANY MURRAY [Primary Care Provider] - 3 days - Instructions Instructions: Cellulitis, Adult, [id number], Pruritus, Angioedema, Easy-to- Read
[2017-03-16] MEDS ORDERED: CLARITIN PO SCH (01:00)
[2017-03-16] MEDS ORDERED: CLARITIN ONE (01:04)
[2017-03-16] MEDS ORDERED: ZANTAC PO ONE (01:04)
[2017-03-16] MEDS ORDERED: MOTRIN TAB 400 MG PO ONE ×2 (01:05→01:14)
[2017-03-16] MEDS ORDERED: HYDROCORTISONE CRM 1% TOP PRN (01:21)
[2017-03-16] MEDS ORDERED: HYDROCORTISONE CRM 1% ONE (01:21)
== END 2017-03-16 01:25 | disposition home or self-care (01) ==
LOC: ER 00:16
DX: L03.113 Cellulitis of right upper limb (principal)
CPT/HCPCS: 99282

== ENCOUNTER 2017-04-21 15:48 | Emergency (ER) | payer OTHER, MEDICAID ==
[2017-04-21 15:54] VITALS: BP 133/97; BMI 27.2
--- NOTE | 2017-04-21 16:08 | DR.GENAD ---
HPI - PCP Primary Care Physician: EREN - HPI Comment HPI Comment: HISTORY BELOW. - Complaint/Symptoms Chief Complaint Doctors Comments: HEADACHE ON AND OFF TIMES WEEKS. PAST 3 DAYS, HOME MEDICATION IS NOT WORKING.THE VISUAL SYMTOMS ASSOCIATED WITH HER MIGRAINE IS GETTING WORSE WELL. NO FEVER. Chief Complaint:: PT C/O MIAGRAINE, FALLING, BLURRED VISION, NAUSEA. PT STATES THESE SYMPTOMS HAVE BEEN GOING ON FOR 3 WEEKS. - Nurses notes reviewed Nurses Notes Review: Yes - Source History Provided: Patient - Mode of Arrival Mode of Arrival: Ambulatory - Timing Onset of Chief Complaint: 03/31/17 Came on: Suddenly - Duration Duration: Constant Duration: Hours - Severity Severity: Moderate PMH - PMH Past Medical History: Yes Past Medical History: Anxiety, COPD, Depression, GERD, Headaches, Kidney Stones , Seizures, Sleep Apnea Past Surgical History: Yes Surgical History: ACTOR UNDERSTUDY Surgery, Hysterectomy, Mastectomy, Ortho Surgery - Family History History of Family Medical Conditions: Yes Family Medical History: Diabetes Mellitus, Cancer, [place] - Social History Does any household member use tobacco: No Alcohol Use: None Do you use any recreational Drugs:: No Lives With: Alone Lives Where: Home - infectious screening In the last 2 months have you had wt loss of >10#?: NO Have you had fever, night sweats or hemotysis?: No Have you traveled outside the country in the last 6 months?: No Isolation: Standard ROS - Review of Systems Constitutional: No Symptoms Reported Eyes: Blurred Vision, Photophobia ENTM: No Symptoms Reported Respiratoy: No Symptoms Reported Cardiovascular: No Symptoms Reported Gastrointestinal/Abdominal: No Symptoms Reported Genitourinary: No Symptoms Reported Neurological: Headache, Dizziness, Other (ATAXIA) Musculoskeletal: No Symptoms Reported Integumentary: No Symptoms Reported Hematologic/Lymphatic: No Symptoms Reported Endocrine: No Symptoms Reported All Other Systems: Reviewed and Negative PE - Vital Signs Vitals: Temperature 98.3 F Pulse Rate 86 Respiratory Rate 18 Blood Pressure [Right Calf] 110/69 Blood Pressure [Left Calf] 107/60 Blood Pressure [Right Arm] 120/78 Blood Pressure 133/97 O2 Sat by Pulse Oximetry 100 - General Limitations: No Limitations General Appearance: Alert - Head Head Exam: Normal Inspection - Eyes Eye exam: Normal Appearance - ENT ENT Exam: Normal External Ear Exam External Ear Exam: Normal External Inspection TM/Canal Exam: Bilateral Normal Nose Exam: Normal Nose Exam Mouth Exam: Normal Inspection Throat Exam: Normal Inspection - Neck Neck Exam: Normal Inspection - Chest Chest Inspection: Symmetric Chest Wall Rise - Respiratory Respiratory Exam: Normal Lung Sounds Bilat Respiratory Exam: Bilateral Clear to Auscultation - Cardiovascular Cardiovascular Exam: Regular Rate, Normal Rhythm, Normal Heart Sounds - Abdominal Exam Abdominal Exam: Normal Bowel Sounds, Soft. negative: Tenderness - Extremities Extremities Exam: Normal Inspection - Back Back Exam: Normal Inspection - Neurologic Neurological Exam: Alert, Oriented X3 - Psychiatric Psychiatric Exam: Normal Affect, Normal Mood - Skin Skin Exam: Normal Color MDM - Differential Diagnosis Differential Diagnosis: MIGRAINE Course - Treatment Treatment: SEE ORDERS. PAIN MED IN ED. PAIN IMPROVED. - Reevaluation 1st: Improved - Education/Counseling Education/Counseling: Patient, Education Educated On: Treatment, Diagnosis, Needs for Follow Up - Diagnosis Discharge Problem: Migraines Qualifiers: Migraine type: with aura Status migrainosus presence: without status migrainosus Intractability: intractable Qualified Code(s): G43.119 - Migraine with aura, intractable, without status migrainosus - Discharge Plan Disposition: HOME, SELF-CARE Condition: Stable Prescriptions: Promethazine HCl [PHENERGAN TAB 25 MG *] 25 mg PO Q6H PRN #20 tab PRN Reason: Nausea/Vomiting - Follow ups/Referrals Follow ups/Referrals: MELANY JASON [Primary Care Provider] - 3 days - Instructions Instructions: Migraine Headache, [id number] Additional Instructions: RETURN TO ED IF WORSE.
[2017-04-21] MEDS ORDERED: MORPHINE SULFATE INJ 4 MG IVP ONE (16:13)
[2017-04-21] MEDS ORDERED: PHENERGAN INJ 25 MG IV ONE (16:14)
[2017-04-21] MEDS ORDERED: PHENERGAN INJ 25 MG ONE (16:16)
[2017-04-21] MEDS ORDERED: MORPHINE SULFATE INJ 4 MG ONE (16:17)
== END 2017-04-21 17:24 | disposition home or self-care (01) ==
LOC: ER 16:03
DX: G43.119 Migraine with aura, intractable, without status migrainosus (principal)
CPT/HCPCS: 96365; 96374; 96375; 99282; 99283; J2270; J2550

== ENCOUNTER 2017-04-26 23:22 | Emergency (ER) | payer OTHER, MEDICAID ==
[2017-04-26 23:27] VITALS: BP 126/75; BMI 28.8
[2017-04-26] MEDS ORDERED: REGLAN INJ 10 MG VIAL IV STA (23:57)
[2017-04-26] MEDS ORDERED: BENADRYL INJ 50 MG VIAL IM ONE (23:58)
[2017-04-26] MEDS ORDERED: PHENERGAN INJ 25 MG IM ONE (23:59)
--- NOTE | 2017-04-27 | DR.HEADACH ---
HPI - Time Seen Time seen: 23:57 - Primary Care Physician Primary Care Physician: darrell - Complaint/Symptoms Chief Complaint Doctors Comments: Patient complains of headache for the past month with left side pain getting worst today. States she has taken a Fiorocet earlier today but nothing recently. She has been nauseated but has not taken any phenergan. states she saw Dr. Barth earlier this week and he wanted to give her an epidoria but she was allergic to the medicine and she is to try botox again. states he ordered an MRI scan but she has not heard from them to schedule the test. States she was her on 04/22 with pain on the left side but now it is on the right side and she is having problems with blurred vision, problems with her balance and nausea. States she walked from her apartment to the emergency room [facility]. states this is one of the worst headache of her life. She is taking Estradiol 2mg daily because she cannot deal with the hot flashes. She denies any recent trauma. She denies chest pain or SOB. Chief Complaint:: migraine for a month Pertinent History: Headache - Reviewed Nurses Notes Reviewed: Yes - Source History Provided: Patient - Mode of Arrival Mode of Arrival: Ambulatory - Timing Onset of Chief Complaint: 04/26/17 - Duration Since Onset: Intermittent How lon Duration: Weeks - Location Headache Location: Generalized, Frontal, Temporal - Quality Quality: Sharp - Severity Headache Severity: Like Previous Headaches - Context Headache Onset Circumstances: Spontaneous History of: None Prior Work Up: CT, Neurologist - Modifying Factors Improves With: Nothing Worsens: Head Movement, Head Position, Light - Associated Signs and Symptoms Associated Symptoms: Nausea, Photophobia, Blurred Vision PMH - PMH Past Medical History: Yes Past Medical History: Anxiety, COPD, Depression, GERD, Headaches, Kidney Stones , Seizures, Sleep Apnea Past Surgical History: Yes Surgical History: ACCOUNTING RECRUITER Surgery, Hysterectomy, Mastectomy, Ortho Surgery - Family History History of Family Medical Conditions: Yes Family Medical History: Diabetes Mellitus, Cancer, [place] - Social History Does patient currently use any type of tobacco product: No Have you used tobacco products in the last 12 months: No Type of Tobacco Use: None Do you use any recreational Drugs:: No Lives Where: Home - infectious screening Have you traveled outside the country in the last 6 months?: No Isolation: Standard ROS - Review of Systems Constitutional: No Symptoms Reported. negative: See HPI, Chills, Diaphoresis, Fever, Malaise, Weakness, Irritable, Fatigue, Loss of Appetite, Other Eyes: No Symptoms Reported, Blurred Vision, Photophobia, Diplopia. negative: See HPI, Eye Pain, Tearing, Discharge, Other ENTM: No Symptoms Reported. negative: See HPI, Ear Pain, Ear Discharge, Pulling on Ears, Hearing Loss, Nose Pain, Nose Discharge, Epistaxis, Nose Congestion, Mouth Pain, Mouth Swelling, Loose Teeth, Drooling, Throat Pain, Throat Swelling, Ear Foreign Body Respiratoy: No Symptoms Reported. negative: See HPI, Productive Cough, Non- Productive Cough, Moist Cough, Dry Cough, Hacking Cough, Barking Cough, Brassy Cough, Orthopnea, Short of Breath, Stridor, Wheezing, Hemoptysis, Other Cardiovascular: No Symptoms Reported. negative: See HPI, Chest Pain, Edema, Palpitations, Syncope, Cyanosis, Skin Mottling, Other Genitourinary: No Symptoms Reported Neurological: No Symptoms Reported, Headache Musculoskeletal: No Symptoms Reported Integumentary: No Symptoms Reported Hematologic/Lymphatic: See HPI, Blood Clots Endocrine: No Symptoms Reported. negative: See HPI, Excessive Sweating, Flushing, Intolerance to Cold, Intolerance to Heat, Increased Hunger, Increased Thirst, Increased Urine, Unexplained Weight Gain, Unexplained Weight Loss, Failure to Thrive, Decreased Appetite, Other Psychiatric: No Symptoms Reported PE - Vital Signs Vitals: Temperature 98.5 F Pulse Rate 100 Respiratory Rate 16 Blood Pressure [Right Calf] 110/69 Blood Pressure [Left Calf] 107/60 Blood Pressure [Right Arm] 120/78 Blood Pressure 126/75 O2 Sat by Pulse Oximetry 100 - General Limitations: No Limitations General Appearance: Alert, In Distress (mild distress) - Head Head Exam: Normal Inspection, Atraumatic, Normocephalic - Eyes Eye exam: Normal Appearance, PERRL, EOMI. negative: Scleral Icterus, Conjunctival Injection, Nystagmus, Miosis, Mydrasis, Periorbital Swelling, Periorbital Tenderness, Other Eyelids: Normal Inspection: Left Pupils: Regular, Round: Bilateral Sclera/Conjunctival: Normal Inspection: Bilateral - ENT ENT Exam: Normal Exam, Normal Oropharynx, Normal External Ear Exam, Mucous Membranes Moist, TM's Normal Bilaterally External Ear Exam: Normal External Inspection TM/Canal Exam: Bilateral Normal Nose Exam: Normal Nose Exam Mouth Exam: Normal Inspection Teeth Exam: Normal Inspection. negative: Dental Caries, Fractured Tooth #, Dental Tenderness #, Gingival Swelling, Other Throat Exam: Normal Inspection - Neck Neck Exam: Normal Inspection, Full ROM, Trachea Midline, Tenderness (right temporal tenderness). negative: Meningismus, Lymphadenopathy, Thyromegaly, Other - Chest Chest Inspection: Normal Inspection, Symmetric Chest Wall Rise - Respiratory Respiratory Exam: Normal Lung Sounds Bilat Respiratory Exam: Bilateral Clear to Auscultation - Cardiovascular Cardiovascular Exam: Regular Rate, Normal Rhythm, Normal Heart Sounds - Abdominal Exam Abdominal Exam: Normal Inspection, Normal Bowel Sounds, Soft Abdominal Tenderness: negative: RUQ, RLQ, LUQ, LLQ, Epigastrium, Suprapubic, Diffuse, Mild, Moderate, Severe, Other - Extremities Extremities Exam: Normal Inspection, Full ROM, Normal Capillary Refill. negative: Tenderness, Edema, Joint Swelling, Calf Tenderness, Other - Back Back Exam: Normal Inspection, Full ROM. negative: Tenderness, (R) CVA Tenderness, (L) CVA Tenderness, Muscle Spasm, Paraspinal Tenderness, Vertebral Tenderness, Rashes, (R) Sciatic Notch Tenderness, (L) Sciatic Notch Tendern, (R ) Straight Leg Raise, (L) Straight Leg Raise, Other - Neurologic Neurological Exam: Alert, Oriented X3, CN II-XII Intact, Normal Gait, Reflexes Normal - Psychiatric Psychiatric Exam: Normal Affect, Normal Mood - Skin Skin Exam: Warm, Dry, Intact, Normal Color. negative: Rash, Cyanosis, Diaphoresis, Erythema, Pallor, Mottled, Other ROR - Labs Reviewed Laboratory Results Reviewed?: Yes (all x-ray results reviewed and discussed with patient) - XRAY XRAY Interpreted by: Radiologist (CT head: Normal brain CT examination.) - Diagnosis Discharge Problem: Headache, History of seizures, [place] usage - Discharge Plan Disposition: 01 HOME, SELF-CARE Condition: Stable - Follow ups/Referrals Follow ups/Referrals: MELANY JASON [Primary Care Provider] - 3 days - Instructions Instructions: Migraine Headache, [id number]
[2017-04-27] MEDS ORDERED: PHENERGAN INJ 25 MG ONE (00:01)
[2017-04-27] MEDS ORDERED: REGLAN INJ 10 MG VIAL ONE (00:01)
[2017-04-27] MEDS ORDERED: BENADRYL INJ 50 MG VIAL ONE (00:01)
--- NOTE | 2017-04-27 00:45 | CT ---
EXAM: CT BRAIN WITHOUT CONTRAST INDICATION: Headache COMPARISION: No Priors TECHNIQUE: Routine axial CT of the brain was performed without intravenous contrast. FINDINGS: The cerebral and cerebellar cortex are normal. The ventricular system is nondilated. No intra or extr a-axial mass or hemorrhage. The lopez-white junction is preserved. There is no evidence of subacute is chemic change. The basilar cisterns are clear. The skull is intact. The mastoid air cells are clear. IMPRESSION: Normal brain CT examination Reported By:
== END 2017-04-27 01:13 | disposition home or self-care (01) ==
LOC: ER 23:30
DX: R51 Headache (principal); Z86.69 Personal history of other diseases of the nervous system and sense organs; Z79.01 Long term (current) use of anticoagulants
CPT/HCPCS: 70450; 96372; 99283; J1200; J2550; J2765

== ENCOUNTER 2017-05-17 00:13 | Emergency (ER) | payer OTHER, MEDICAID ==
[2017-05-17 00:24] VITALS: BMI 28.8
--- NOTE | 2017-05-17 00:52 | DR.GENAD ---
HPI - PCP Primary Care Physician: darrell - Complaint/Symptoms Chief Complaint Doctors Comments: Patient admits to have chest pain onset two hours prior to being seen. She denies dyspnea or fever. She states that she had had double breast implants several months ago and has had several pulmonary emboli and the left breast feels like the pain of a pullmonary emboli. Chief Complaint:: chest pain stabbing - Source History Provided: Patient - Mode of Arrival Mode of Arrival: Ambulatory - Timing Onset of Chief Complaint: 05/17/17 PMH - PMH Past Medical History: Yes Past Medical History: Anxiety, COPD, Depression, GERD, Headaches, Kidney Stones , Seizures, Sleep Apnea Past Surgical History: Yes Surgical History: APPLICATION SPEC Surgery, Hysterectomy, Mastectomy, Ortho Surgery - Family History History of Family Medical Conditions: Yes Family Medical History: Diabetes Mellitus, Cancer, [place] - Social History Does patient currently use any type of tobacco product: No Have you used tobacco products in the last 12 months: No Type of Tobacco Use: None Does any household member use tobacco: No Alcohol Use: None Do you use any recreational Drugs:: No Lives With: Family Lives Where: Home - infectious screening In the last 2 months have you had wt loss of >10#?: NO Have you had fever, night sweats or hemotysis?: No Have you traveled outside the country in the last 6 months?: No Isolation: Standard ROS - Review of Systems Eyes: No Symptoms Reported ENTM: No Symptoms Reported Respiratoy: No Symptoms Reported Cardiovascular: No Symptoms Reported Gastrointestinal/Abdominal: No Symptoms Reported Genitourinary: No Symptoms Reported Neurological: No Symptoms Reported Musculoskeletal: Chest wall (pain) Integumentary: No Symptoms Reported Hematologic/Lymphatic: No Symptoms Reported Endocrine: No Symptoms Reported Psychiatric: No Symptoms Reported All Other Systems: Reviewed and Negative PE - Vital Signs Vitals: Temperature 98.3 F Pulse Rate 115 Respiratory Rate 16 Blood Pressure [Right Calf] 110/69 Blood Pressure [Left Calf] 107/60 Blood Pressure [Right Arm] 120/78 Blood Pressure 130/94 O2 Sat by Pulse Oximetry 98 - General Limitations: No Limitations General Appearance: Alert, In No Apparent Distress - Head Head Exam: Normal Inspection, Atraumatic - Eyes Eye exam: Normal Appearance, PERRL, EOMI - ENT ENT Exam: Normal Exam External Ear Exam: Normal External Inspection TM/Canal Exam: Bilateral Normal Nose Exam: Normal Nose Exam Mouth Exam: Normal Inspection Throat Exam: Normal Inspection - Neck Neck Exam: Normal Inspection, Full ROM - Chest Chest Inspection: Normal Inspection, Tenderness (to palpation of chest wall) - Respiratory Respiratory Exam: Normal Lung Sounds Bilat Respiratory Exam: Bilateral Clear to Auscultation - Cardiovascular Cardiovascular Exam: Regular Rate, Normal Rhythm - Abdominal Exam Abdominal Exam: Normal Inspection, Normal Bowel Sounds Abdominal Tenderness: negative: RUQ, RLQ, LUQ, LLQ, Epigastrium, Suprapubic, Diffuse, Mild, Moderate, Severe, Other - Extremities Extremities Exam: Normal Inspection, Full ROM - Back Back Exam: Normal Inspection - Neurologic Neurological Exam: Alert, Oriented X3, CN II-XII Intact - Psychiatric Psychiatric Exam: Normal Affect, Normal Mood - Skin Skin Exam: Warm, Dry, Intact Course - Reevaluation 1st: Improved - Education/Counseling Education/Counseling: Patient Educated On: Treatment, Diagnosis, Prognosis, Needs for Follow Up ROR - Labs Reviewed Result Diagrams: 05/17/17 00:44 05/17/17 00:44 Laboratory: WBC 7.5 X10^3/uL (3.6-10.0) 05/17/17 00:44 RBC 4.48 X10^6/uL (3.5-5.4) 05/17/17 00:44 Hgb 12.7 g/dL (12.0-16.0) 05/17/17 00:44 Hct 37.4 % (36.0-47.0) 05/17/17 00:44 MCV 83.4 fL (80.0-100.0) 05/17/17 00:44 MCH 28.4 pg (27.0-34.0) 05/17/17 00:44 MCHC 34.1 g/dL (33.0-35.0) 05/17/17 00:44 RDW 14.0 % (11.6-16.5) 05/17/17 00:44 Plt Count 256 X10^3/uL (150.0-450.0) 05/17/17 00:44 MPV 8.1 fL (7.4-11.0) 05/17/17 00:44 Neut % 53.8 % (42.0-75.0) 05/17/17 00:44 Lymph % 38.5 % (21.0-51.0) 05/17/17 00:44 [place] % 6.2 % (0.0-13.0) 05/17/17 00:44 Eos % 0.9 % (0.9-2.9) 05/17/17 00:44 Baso % 0.6 % (0.2-1.0) 05/17/17 00:44 Neut # 4.0 x10^3/uL (2.2-4.8) 05/17/17 00:44 Lymph # 2.9 X10^3/uL (1.3-2.9) 05/17/17 00:44 [place] # 0.5 x10^3/uL (0.3-0.8) 05/17/17 00:44 Eos # 0.1 x10^3/uL (0.0-0.2) 05/17/17 00:44 Baso # 0.0 X10^3/uL (0.0-0.1) 05/17/17 00:44 Absolute Nucleated RBC 0.1 /100WBC 05/17/17 00:44 INR Target Range - 05/17/17 00:44 INR 1.04 (0.8-1.3) 05/17/17 00:44 D-Dimer < 100 ng/mL (0-400) 05/17/17 00:44 Sodium 141 mmol/L (136-145) 05/17/17 00:44 Corrected Sodium 141 mmol/L (136-145) 05/17/17 00:44 Potassium 3.3 mmol/L (3.5-5.1) L 05/17/17 00:44 Chloride 104 mmol/L (98-107) 05/17/17 00:44 Carbon Dioxide 30.3 mmol/L (21-32) 05/17/17 00:44 BUN 16 mg/dL (7-18) 05/17/17 00:44 Creatinine 1.28 mg/dL (0.55-1.02) H 05/17/17 00:44 Est GFR (MDRD) Af Amer 59 (>60) 05/17/17 00:44 Est GFR (MDRD) Non-Af 49 (>60) L 05/17/17 00:44 Glucose 115 mg/dL (65-99) H 05/17/17 00:44 Calcium 9.1 mg/dL (8.5-10.1) 05/17/17 00:44 Corrected Calcium TNP 05/17/17 00:44 Magnesium 1.8 mg/dL (1.7-2.9) 05/17/17 00:44 Total Bilirubin 0.20 mg/dL (0.2-1.0) 05/17/17 00:44 AST 14 Units/L (15-37) L 05/17/17 00:44 ALT 15 Units/L (12-78) 05/17/17 00:44 Alkaline Phosphatase 109 Units/L (46-116) 05/17/17 00:44 Creatine Kinase 65 Units/L (26-192) 05/17/17 00:44 CK-MB (CK-2) < 1.0 ng/mL (0-4.0) 11 00:44 CK/CKMB % Calc 1.5 % (<4) 05/17/17 00:44 Troponin I < 0.02 ng/mL (0-1.5) 05/17/17 00:44 Total Protein 7.5 g/dL (6.4-8.2) 05/17/17 00:44 Albumin 3.5 g/dL (3.4-5.0) 05/17/17 00:44 Globulin 4.0 g/dL (2.5-4.5) 05/17/17 00:44 Albumin/Globulin Ratio 0.9 Ratio (1.1-2.1) L 05/17/17 00:44 - XRAY XRAY Interpreted by: Radiologist (Chest: No acute findings compared to previous film) - Diagnosis Discharge Problem: Costochondritis, acute, Hypokalemia - Discharge Plan Condition: Stable - Follow ups/Referrals Follow ups/Referrals: MELANY JASON [Primary Care Provider] - 3 days - Instructions
[2017-05-17] MEDS ORDERED: NS 1000 ML 1,000 ML ONE (00:56)
[2017-05-17 01:00] LABS: BASOPHILS % (AUTO) 0.6 % (0.2-1.0); EOSINOPHILS # (AUTO) 0.1 x10^3/uL (0.0-0.2); EOSINOPHILS % (AUTO) 0.9 % (0.9-2.9); HEMATOCRIT 37.4 % (36.0-47.0); HEMOGLOBIN 12.7 g/dL (12.0-16.0); LYMPHOCYTES # (AUTO) 2.9 X10^3/uL (1.3-2.9); LYMPHOCYTES % (AUTO) 38.5 % (21.0-51.0); MEAN CORPUSCULAR HEMOGLOBIN 28.4 pg (27.0-34.0); MEAN CORPUSCULAR HGB CONC 34.1 g/dL (33.0-35.0); MEAN CORPUSCULAR VOLUME 83.4 fL (80.0-100.0); MEAN PLATELET VOLUME 8.1 fL (7.4-11.0); MONOCYTES # (AUTO) 0.5 x10^3/uL (0.3-0.8); MONOCYTES % (AUTO) 6.2 % (0.0-13.0); NEUTROPHILS % (AUTO) 53.8 % (42.0-75.0); PLATELET COUNT 256 X10^3/uL (150.0-450.0); RED BLOOD COUNT 4.48 X10^6/uL (3.5-5.4); WHITE BLOOD COUNT 7.5 X10^3/uL (3.6-10.0)
[2017-05-17] MEDS ORDERED: NS 1000 ML 1,000 ML IV SCH (01:00)
[2017-05-17 01:19] LABS: BLOOD UREA NITROGEN 16 mg/dL (7-18); CALCIUM 9.1 mg/dL (8.5-10.1); CARBON DIOXIDE 30.3 mmol/L (21-32); CHLORIDE 104 mmol/L (98-107); COR NA(FOR HYPERGLY) 141 mmol/L (136-145); CREATININE 1.28 mg/dL (0.55-1.02); SODIUM 141 mmol/L (136-145); TROPONIN I < 0.02 ng/mL (0-1.5); eGFR BLACK RACES 59 (>60); eGFR NON BLACK RACES 49 (>60)
[2017-05-17 01:24] LABS: ALANINE AMINOTRANSFERASE 15 Units/L (12-78); ALBUMIN 3.5 g/dL (3.4-5.0); ALKALINE PHOSPHATASE 109 Units/L (46-116); ASPARTATE AMINO TRANSFERASE 14 Units/L (15-37); CKMB % 1.5 % (<4); CREATINE KINASE 65 Units/L (26-192); CREATINE KINASE MB < 1.0 ng/mL (0-4.0); MAGNESIUM 1.8 mg/dL (1.7-2.9); TOTAL PROTEIN 7.5 g/dL (6.4-8.2)
[2017-05-17] MEDS ORDERED: MORPHINE SULFATE INJ 4 MG IVP ONE (01:41)
[2017-05-17] MEDS ORDERED: MORPHINE SULFATE INJ 4 MG ONE (01:43)
[2017-05-17] MEDS ORDERED: PHENERGAN INJ 25 MG IV ONE (01:45)
[2017-05-17] MEDS ORDERED: PHENERGAN INJ 25 MG ONE (01:46)
[2017-05-17] MEDS ORDERED: K-LYTE EFFERVESCENT PO ONE (01:48)
[2017-05-17] MEDS ORDERED: K-LYTE EFFERVESCENT ONE (01:49)
[2017-05-17 03:21] VITALS: BP 127/90
--- NOTE | 2017-05-17 05:07 | RAD ---
Chest AP portable Indication: Chest pain. Comparison: 10/08/2016. Findings: Port-A-Cath tip is over the SVC. There is no pneumothorax if, effusion or consolidation. He art size within normal limits. Impression: No acute chest process. Reported By:
== END 2017-05-17 03:00 | disposition home or self-care (01) ==
LOC: ER 00:13
DX: M94.0 Chondrocostal junction syndrome [Tietze] (principal); E87.6 Hypokalemia
CPT/HCPCS: 36415; 36591; 71010; 80053; 82550; 82553; 83735; 84484; 85025; 85378; 85610; 93005; 93010; 96365; 96374; 96375; 99283; J2270; J2550

== ENCOUNTER → 2017-06-26 | Outpatient (CLI) | payer OTHER, MEDICAID ==
--- NOTE | 2017-06-26 12:37 | RAD ---
Examination: Chest, PA and lateral views History: Preop Comparison reference 05/17/2017 Findings: Normal heart size with clear lungs and pleural spaces. A a right sided surgical injection p ort terminates in the SVC. An IVC filter device is identified. Impression: No change; no acute disease. Reported By:
== END | disposition home or self-care (01) | DRG 951 ==
LOC: RAD 11:01
PROVIDERS: ATTEND Nurse Practitioner Family
DX: Z01.811 Encounter for preprocedural respiratory examination (principal); T85.9XXS Unspecified complication of internal prosthetic device, implant and graft, sequela
CPT/HCPCS: 71020

== ENCOUNTER 2017-07-05 13:22 | Emergency (ER) | payer OTHER, MEDICAID ==
[2017-07-05 13:35] VITALS: BP 110/79; BMI 30.4
--- NOTE | 2017-07-05 13:47 | DR.GENAD ---
HPI - PCP Primary Care Physician: QUINN FARRAR - Complaint/Symptoms Chief Complaint Doctors Comments: Rt. leg and knee pain x 3 days. 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 to be checked out. She relates hx of DVTs and P.E. She has an indwelling IVC. She takes Elliquis for maintainance but has been off of this for the last for days due to a surgical procedure that was planned for yesterday. She has no SOB Chief Complaint:: PT. C/O RIGHT KNEE PAIN AND SWELLING X 3 DAYS, POSSIBLE DVT. PT. CAME OFF OF HER ELIQUIS ON SATURDAY BECAUSE SHE WAS SCHEDULED FOR SURGERY ON SATURDAY BUT PT. DID NOT HAVE SURGERY BECAUSE THEY WANTED HER TO HAVE HER KNEE CHECKED OUT FIRST. PT. ALSO C/O NECK AND BACK PAIN. - Nurses notes reviewed Nurses Notes Review: Yes - Source History Provided: Patient - Mode of Arrival Mode of Arrival: Wheelchair - Timing Onset of Chief Complaint: 07/02/17 PMH - PMH Past Medical History: Yes Past Medical History: Anxiety, COPD, Depression, GERD, Headaches, Kidney Stones , Seizures, Sleep Apnea Past Medical History Comment: DVT and P.E. Past Surgical History: Yes Surgical History: TREE FELLER Surgery, Hysterectomy, Mastectomy, Ortho Surgery, Other ( IVC placement) - Family History History of Family Medical Conditions: Yes Family Medical History: Diabetes Mellitus, Cancer, [place] - Social History Does patient currently use any type of tobacco product: No Have you used tobacco products in the last 12 months: No Type of Tobacco Use: None Does any household member use tobacco: No Alcohol Use: None Do you use any recreational Drugs:: No Lives With: Alone Lives Where: Home - infectious screening In the last 2 months have you had wt loss of >10#?: NO Have you had fever, night sweats or hemotysis?: No Have you traveled outside the country in the last 6 months?: No Isolation: Standard ROS - Review of Systems Constitutional: No Symptoms Reported Eyes: No Symptoms Reported ENTM: No Symptoms Reported Respiratoy: No Symptoms Reported Cardiovascular: No Symptoms Reported Gastrointestinal/Abdominal: No Symptoms Reported Genitourinary: No Symptoms Reported Neurological: No Symptoms Reported Musculoskeletal: Right, Leg, Knee Integumentary: No Symptoms Reported Hematologic/Lymphatic: No Symptoms Reported Endocrine: No Symptoms Reported Psychiatric: No Symptoms Reported All Other Systems: Reviewed and Negative PE - Vital Signs Vitals: Pulse Rate 113 Respiratory Rate 18 Blood Pressure [Right Calf] 110/69 Blood Pressure [Left Calf] 107/60 Blood Pressure [Right Arm] 127/90 Blood Pressure 110/79 O2 Sat by Pulse Oximetry 98 - General Limitations: No Limitations General Appearance: Alert, In No Apparent Distress - Head Head Exam: Normal Inspection, Atraumatic - Eyes Eye exam: Normal Appearance - ENT ENT Exam: Normal Exam - Neck Neck Exam: Normal Inspection, Full ROM, Trachea Midline - Chest Chest Inspection: Normal Inspection, Symmetric Chest Wall Rise - Respiratory Respiratory Exam: Normal Lung Sounds Bilat - Cardiovascular Cardiovascular Exam: Regular Rate, Normal Rhythm - Abdominal Exam Abdominal Exam: Normal Inspection, Normal Bowel Sounds, Soft - Extremities Extremities Exam: Normal Inspection, Full ROM, Calf Tenderness (Right side ), Other (Jay's sign is positive on the RLE) - Back Back Exam: Normal Inspection - Neurologic Neurological Exam: Alert, Oriented X3 - Psychiatric Psychiatric Exam: Normal Affect, Normal Mood - Skin Skin Exam: Warm, Dry, Intact, Normal Color Course - Education/Counseling Education/Counseling: Patient, Family, Counseling Educated On: Treatment, Diagnosis, Prognosis, Needs for Follow Up ROR - Labs Reviewed Laboratory: D-Dimer < 100 ng/mL (0-400) 07/05/17 14:13 - Diagnosis Discharge Problem: Knee pain, right, Calf pain - Discharge Plan Disposition: 01 HOME, SELF-CARE Condition: Stable - Follow ups/Referrals Follow ups/Referrals: MELANY JASON [Primary Care Provider] - 3 days - Instructions
--- NOTE | 2017-07-05 14:54 | RAD ---
HISTORY: Right knee pain Study: Right knee: Two views Comparison: None Findings: The joint space is well preserved. No acute bony or joint abnormalities are identified. Minimal ent hesopathy is noted at the quadriceps tendon insertion. IMPRESSION: 1. Essentially negative radiographs of the right knee. Reported By:
--- NOTE | 2017-07-05 14:55 | VAS ---
HISTORY: Extremity pain, swelling, and edema Study: Right lower extremity Doppler venous ultrasound. TECHNIQUE: Multiple lopez scale and color flow Doppler images of the deep venous system were obtained of the right lower extremity. FINDINGS: The deep venous system of the right lower extremity evaluated from the level of the common femoral vein through the popliteal vein. Normal color flow and augmentation can be observed. In ad dition, normal compression is seen throughout the deep venous system. IMPRESSION: 1. Negative examination for DVT. Reported By:
== END 2017-07-05 15:35 | disposition home or self-care (01) ==
LOC: ER 13:27
DX: M25.561 Pain in right knee (principal); M79.604 Pain in right leg
CPT/HCPCS: 36415; 36591; 73560; 85378; 93971; 96365; 96374; 99282; 99283

== ENCOUNTER 2017-07-22 14:58 | Emergency (ER) | payer OTHER, MEDICAID ==
[2017-07-22 15:05] VITALS: BP 173/105; BMI 30.4
--- NOTE | 2017-07-22 16:42 | DR.GENAD ---
HPI - PCP Primary Care Physician: nicole ramírez - Complaint/Symptoms Chief Complaint:: pt stated she had chest pain and left side pain since yesterday. 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 Surgery, Hysterectomy, Mastectomy, Ortho Surgery, Other - Family History History of Family Medical Conditions: Yes Family Medical History: Diabetes Mellitus, Cancer, [place] - Social History Does patient currently use any type of tobacco product: No Have you used tobacco products in the last 12 months: No Type of Tobacco Use: None Does any household member use tobacco: No Alcohol Use: None Do you use any recreational Drugs:: No Lives With: Alone Lives Where: Home - infectious screening In the last 2 months have you had wt loss of >10#?: NO Have you had fever, night sweats or hemotysis?: No Have you traveled outside the country in the last 6 months?: No Isolation: Standard PE - Vital Signs Vitals: Temperature 98.7 F Pulse Rate 94 Respiratory Rate 16 Blood Pressure [Right Calf] 110/69 Blood Pressure [Left Calf] 107/60 Blood Pressure [Right Arm] 127/90 Blood Pressure 173/105 O2 Sat by Pulse Oximetry 100 ROR - Labs Reviewed Result Diagrams: 07/22/17 17:00 07/22/17 17:00 Laboratory: WBC 6.1 X10^3/uL (3.6-10.0) 07/22/17 17:00 RBC 4.22 X10^6/uL (3.5-5.4) 07/22/17 17:00 Hgb 12.1 g/dL (12.0-16.0) 07/22/17 17:00 Hct 35.6 % (36.0-47.0) L 07/22/17 17:00 MCV 84.3 fL (80.0-100.0) 07/22/17 17:00 MCH 28.6 pg (27.0-34.0) 07/22/17 17:00 MCHC 33.9 g/dL (33.0-35.0) 07/22/17 17:00 RDW 13.7 % (11.6-16.5) 07/22/17 17:00 Plt Count 300 X10^3/uL (150.0-450.0) 07/22/17 17:00 MPV 8.1 fL (7.4-11.0) 07/22/17 17:00 Neut % 46.1 % (42.0-75.0) 07/22/17 17:00 Lymph % 44.9 % (21.0-51.0) 07/22/17 17:00 [place] % 6.8 % (0.0-13.0) 07/22/17 17:00 Eos % 1.4 % (0.9-2.9) 07/22/17 17:00 Baso % 0.8 % (0.2-1.0) 07/22/17 17:00 Neut # 2.8 x10^3/uL (2.2-4.8) 07/22/17 17:00 Lymph # 2.7 X10^3/uL (1.3-2.9) 07/22/17 17:00 [place] # 0.4 x10^3/uL (0.3-0.8) 07/22/17 17:00 Eos # 0.1 x10^3/uL (0.0-0.2) 07/22/17 17:00 Baso # 0.1 X10^3/uL (0.0-0.1) 07/22/17 17:00 Absolute Nucleated RBC 0.0 /100WBC 07/22/17 17:00 D-Dimer < 100 ng/mL (0-400) 07/22/17 17:00 Sodium 140 mmol/L (136-145) 07/22/17 17:00 Corrected Sodium TNP 07/22/17 17:00 Potassium 4.1 mmol/L (3.5-5.1) 07/22/17 17:00 Chloride 105 mmol/L (98-107) 07/22/17 17:00 Carbon Dioxide 29.9 mmol/L (21-32) 07/22/17 17:00 BUN 13 mg/dL (7-18) 07/22/17 17:00 Creatinine 0.92 mg/dL (0.55-1.02) 07/22/17 17:00 Est GFR (MDRD) Af Amer > 60 (>60) 07/22/17 17:00 Est GFR (MDRD) Non-Af > 60 (>60) 07/22/17 17:00 Glucose 90 mg/dL (65-99) 07/22/17 17:00 Calcium 8.9 mg/dL (8.5-10.1) 07/22/17 17:00 Corrected Calcium TNP 07/22/17 17:00 Total Bilirubin 0.20 mg/dL (0.2-1.0) 07/22/17 17:00 AST 14 Units/L (15-37) L 07/22/17 17:00 ALT 20 Units/L (12-78) 07/22/17 17:00 Alkaline Phosphatase 95 Units/L (46-116) 07/22/17 17:00 Creatine Kinase 74 Units/L (26-192) 07/22/17 17:00 CK-MB (CK-2) < 1.0 ng/mL (0-4.0) 07/22/17 17:00 CK/CKMB % Calc 1.4 % (<4) 07/22/17 17:00 Troponin I < 0.02 ng/mL (0-1.5) 07/22/17 17:00 Total Protein 7.3 g/dL (6.4-8.2) 07/22/17 17:00 Albumin 3.5 g/dL (3.4-5.0) 07/22/17 17:00 Globulin 3.8 g/dL (2.5-4.5) 07/22/17 17:00 Albumin/Globulin Ratio 0.9 Ratio (1.1-2.1) L 07/22/17 17:00 - Discharge Plan Condition: Stable - Follow ups/Referrals Follow ups/Referrals: MELANY RAMÍREZ [Primary Care Provider] - 1 day - Instructions Instructions: Abdominal Pain, Adult, [id number] Additional Instructions: RETURN TOED IF WORSE.
[2017-07-22 17:13] LABS: BASOPHILS # (AUTO) 0.1 X10^3/uL (0.0-0.1); BASOPHILS % (AUTO) 0.8 % (0.2-1.0); EOSINOPHILS # (AUTO) 0.1 x10^3/uL (0.0-0.2); EOSINOPHILS % (AUTO) 1.4 % (0.9-2.9); HEMATOCRIT 35.6 % (36.0-47.0); HEMOGLOBIN 12.1 g/dL (12.0-16.0); LYMPHOCYTES # (AUTO) 2.7 X10^3/uL (1.3-2.9); LYMPHOCYTES % (AUTO) 44.9 % (21.0-51.0); MEAN CORPUSCULAR HEMOGLOBIN 28.6 pg (27.0-34.0); MEAN CORPUSCULAR HGB CONC 33.9 g/dL (33.0-35.0); MEAN CORPUSCULAR VOLUME 84.3 fL (80.0-100.0); MEAN PLATELET VOLUME 8.1 fL (7.4-11.0); MONOCYTES # (AUTO) 0.4 x10^3/uL (0.3-0.8); MONOCYTES % (AUTO) 6.8 % (0.0-13.0); NEUTROPHILS # (AUTO) 2.8 x10^3/uL (2.2-4.8); NEUTROPHILS % (AUTO) 46.1 % (42.0-75.0); PLATELET COUNT 300 X10^3/uL (150.0-450.0); RED BLOOD COUNT 4.22 X10^6/uL (3.5-5.4); RED CELL DISTRIBUTION WIDTH 13.7 % (11.6-16.5); WHITE BLOOD COUNT 6.1 X10^3/uL (3.6-10.0)
[2017-07-22 17:26] LABS: ALANINE AMINOTRANSFERASE 20 Units/L (12-78); ALBUMIN 3.5 g/dL (3.4-5.0); ALKALINE PHOSPHATASE 95 Units/L (46-116); ASPARTATE AMINO TRANSFERASE 14 Units/L (15-37); BLOOD UREA NITROGEN 13 mg/dL (7-18); CALCIUM 8.9 mg/dL (8.5-10.1); CARBON DIOXIDE 29.9 mmol/L (21-32); CHLORIDE 105 mmol/L (98-107); CREATININE 0.92 mg/dL (0.55-1.02); SODIUM 140 mmol/L (136-145); TOTAL PROTEIN 7.3 g/dL (6.4-8.2); eGFR BLACK RACES > 60 (>60); eGFR NON BLACK RACES > 60 (>60)
--- NOTE | 2017-07-22 17:31 | CT ---
CT abdomen and pelvis without contrast Indication: Left-sided abdominal pain Comparison: 01/24/2017 Technique: Multiple axial images of the abdomen and pelvis were obtained from the lung bases to the pubic symphy sis without the administration of IV contrast. Findings: The lung bases are clear. Small pericardial effusion. Given limitations of a noncontrast examination no focal hepatic lesion. Gallbladder, bile ducts, spleen, pancreas and adrenal glands are normal. Nei ther kidney demonstrates evidence of nephrolithiasis, hydronephrosis or mass. Upper GI tract is witho ut evidence of mass or obstruction. Urinary bladder normal. No pelvic or adnexal mass. The rectum dem onstrates slight increased fecal material with mild bowel wall thickening for example on axial image 68. Scattered diverticular noted within the more proximal colon without evidence acute diverticulitis . There is increased fullness at the ileocecal valve which is indeterminate and may represent fecal m aterial versus thickening of the cecal valve. IVC filter is in expected positioning. No pelvic free f luid or adenopathy. Early stage osteonecrosis is noted for example within right femoral head on axial image 75 and within the left femoral head on axial image 73. Impression: 1.Mild constipation. The circumferential thickening of the sigmoid colon potentially represents chron ic thickening in the setting of prior diverticulitis; however underlying neoplasia in this location i s not excluded and correlation with colonoscopy is recommended if not already recently performed. 2. Scattered diverticula within the distal colon without evidence acute diverticulitis. 3. Increased fullness within the ileocecal valve potentially this represents fecal material versus ac tual thickening of the ileocecal valve, if colonoscopy is performed correlation in this location woul d be recommended. No adjacent enlarged pericecal lymphadenopathy. The appendix is normal. 4. Early stage bilateral femoral head osteonecrosis. 5. Refer to above for other incidental findings. Reported By:
[2017-07-22 17:39] LABS: CKMB % 1.4 % (<4); CREATINE KINASE 74 Units/L (26-192); CREATINE KINASE MB < 1.0 ng/mL (0-4.0); TROPONIN I < 0.02 ng/mL (0-1.5)
[2017-07-22] MEDS ORDERED: PHENERGAN INJ 25 MG IV ONE (18:06)
[2017-07-22] MEDS ORDERED: DILAUDID INJ IVP ONE (18:09)
--- NOTE | 2017-07-22 18:10 | RAD ---
History: Chest and left-sided pain since yesterday Study: AP chest Comparison: June 26, 2017 Findings: The lungs are clear and the heart size is normal. There is an unchanged Port-A-Cath from th e right subclavian vein. There is no effusion or pneumothorax. Impression: No acute cardiopulmonary disease Reported By:
[2017-07-22] MEDS ORDERED: PHENERGAN INJ 25 MG ONE (18:15)
[2017-07-22] MEDS ORDERED: DILAUDID INJ ONE (18:16)
== END 2017-07-22 19:20 | disposition home or self-care (01) ==
LOC: ER 15:11
DX: R07.89 Other chest pain (principal); R11.2 Nausea with vomiting, unspecified; R19.7 Diarrhea, unspecified; R10.84 Generalized abdominal pain; K59.00 Constipation, unspecified; M87.859 Other osteonecrosis, unspecified femur
CPT/HCPCS: 36415; 36591; 71045; 74176; 80053; 82550; 82553; 84484; 85025; 85378; 93005; 93010; 96365; 96374; 96375; 99282; 99283; J1170; J2550

== ENCOUNTER 2017-08-04 11:16 | Emergency (ER) | payer OTHER, MEDICAID ==
[2017-08-04 11:20] VITALS: BMI 28.7
[2017-08-04] MEDS ORDERED: MORPHINE SULFATE INJ 4 MG IVP ONE (11:54)
[2017-08-04] MEDS ORDERED: PHENERGAN INJ 25 MG IV ONE (11:58)
--- NOTE | 2017-08-04 11:59 | DR.GENAD ---
HPI - PCP Primary Care Physician: Marc JASON - HPI Comment HPI Comment: STARTED TODAY IN CONFUCIANISM. OFF BLOOD THINNER MED FOR A WEEK. HISTORY DVT. - Complaint/Symptoms Chief Complaint Doctors Comments: MIGRAINE HEADACHE AND CHEST PAIN. Chief Complaint:: PT. C/O CHEST PAIN WITH AN ONSET OF 0830 WITH A NON PRODUCTIVE COUGH. - Nurses notes reviewed Nurses Notes Review: Yes - Source History Provided: Patient - Mode of Arrival Mode of Arrival: Ambulatory - Timing Onset of Chief Complaint: 08/04/17 Came on: Suddenly - Duration Duration: Constant Duration: Days - Severity Severity: Moderate PMH - PMH Past Medical History: Yes Past Medical History: Anxiety, COPD, Depression, GERD, Headaches, Kidney Stones , Seizures, Sleep Apnea Past Surgical History: Yes Surgical History: MANAGER APPLIED Surgery, Hysterectomy, Mastectomy, Ortho Surgery, Other - Family History History of Family Medical Conditions: Yes Family Medical History: Diabetes Mellitus, Cancer, [place] - Social History Does patient currently use any type of tobacco product: No Have you used tobacco products in the last 12 months: No Type of Tobacco Use: None Does any household member use tobacco: No Alcohol Use: None Do you use any recreational Drugs:: No Lives With: Alone Lives Where: Home - infectious screening In the last 2 months have you had wt loss of >10#?: NO Have you had fever, night sweats or hemotysis?: No Have you traveled outside the country in the last 6 months?: No Isolation: Standard ROS - Review of Systems Constitutional: No Symptoms Reported Eyes: Photophobia ENTM: No Symptoms Reported Respiratoy: Non-Productive Cough, Short of Breath. negative: Wheezing, Hemoptysis Cardiovascular: Chest Pain Gastrointestinal/Abdominal: Nausea, Vomiting Genitourinary: No Symptoms Reported Neurological: Headache Musculoskeletal: No Symptoms Reported Integumentary: No Symptoms Reported Hematologic/Lymphatic: No Symptoms Reported Endocrine: No Symptoms Reported All Other Systems: Reviewed and Negative PE - Vital Signs Vitals: Temperature 97.8 F Pulse Rate [Apical] 96 Pulse Rate 124 Respiratory Rate 15 Blood Pressure [Right Calf] 110/69 Blood Pressure [Left Calf] 131/64 Blood Pressure [Right Arm] 127/90 Blood Pressure 126/87 O2 Sat by Pulse Oximetry 98 - General Limitations: No Limitations General Appearance: Alert - Head Head Exam: Normal Inspection - Eyes Eye exam: Normal Appearance - ENT ENT Exam: Normal External Ear Exam External Ear Exam: Normal External Inspection TM/Canal Exam: Bilateral Normal Nose Exam: Normal Nose Exam Mouth Exam: Normal Inspection Throat Exam: Normal Inspection - Neck Neck Exam: Normal Inspection - Chest Chest Inspection: Symmetric Chest Wall Rise - Respiratory Respiratory Exam: Normal Lung Sounds Bilat Respiratory Exam: Bilateral Clear to Auscultation - Cardiovascular Cardiovascular Exam: Regular Rate, Normal Rhythm - Abdominal Exam Abdominal Exam: Normal Bowel Sounds, Soft. negative: Tenderness - Extremities Extremities Exam: Normal Inspection - Back Back Exam: Normal Inspection - Neurologic Neurological Exam: Alert, Oriented X3, Normal Gait, Reflexes Normal. negative: Motor Sensory Deficit - Psychiatric Psychiatric Exam: Anxious - Skin Skin Exam: Normal Color MDM - Differential Diagnosis Differential Diagnosis: MIGRAINE HEADACHE, CHEST PAIN Course - Treatment Treatment: SEE ORDERS. PATIENT TO SEE DR. BARKER IN AM FOR MEDICATION SAMPLE. - Reevaluation 1st: Improved - Education/Counseling Education/Counseling: Patient, Education Educated On: Diagnosis, Needs for Follow Up ROR - Labs Reviewed Laboratory Results Reviewed?: Yes Result Diagrams: 08/04/17 11:56 08/04/17 11:56 Laboratory: WBC 5.0 X10^3/uL (3.6-10.0) 08/04/17 11:56 RBC 4.01 X10^6/uL (3.5-5.4) 08/04/17 11:56 Hgb 11.5 g/dL (12.0-16.0) L 08/04/17 11:56 Hct 33.7 % (36.0-47.0) L 08/04/17 11:56 MCV 84.1 fL (80.0-100.0) 08/04/17 11:56 MCH 28.8 pg (27.0-34.0) 08/04/17 11:56 MCHC 34.2 g/dL (33.0-35.0) 08/04/17 11:56 RDW 13.6 % (11.6-16.5) 08/04/17 11:56 Plt Count 264 X10^3/uL (150.0-450.0) 08/04/17 11:56 MPV 8.0 fL (7.4-11.0) 08/04/17 11:56 Neut % 43.2 % (42.0-75.0) 08/04/17 11:56 Lymph % 46.1 % (21.0-51.0) 08/04/17 11:56 [place] % 8.0 % (0.0-13.0) 08/04/17 11:56 Eos % 2.1 % (0.9-2.9) 08/04/17 11:56 Baso % 0.6 % (0.2-1.0) 08/04/17 11:56 Neut # 2.2 x10^3/uL (2.2-4.8) 08/04/17 11:56 Lymph # 2.3 X10^3/uL (1.3-2.9) 08/04/17 11:56 [place] # 0.4 x10^3/uL (0.3-0.8) 08/04/17 11:56 Eos # 0.1 x10^3/uL (0.0-0.2) 08/04/17 11:56 Baso # 0.0 X10^3/uL (0.0-0.1) 08/04/17 11:56 Absolute Nucleated RBC 0.1 /100WBC 08/04/17 11:56 INR Target Range - 08/04/17 12:03 INR 1.00 (0.8-1.3) 08/04/17 12:03 PTT 29.9 SECONDS (22.9-36.5) 08/04/17 12:03 PTT Comment - 08/04/17 12:03 D-Dimer < 100 ng/mL (0-400) 08/04/17 11:56 Sodium 142 mmol/L (136-145) 08/04/17 11:56 Corrected Sodium TNP 08/04/17 11:56 Potassium 3.6 mmol/L (3.5-5.1) 08/04/17 11:56 Chloride 106 mmol/L (98-107) 08/04/17 11:56 Carbon Dioxide 29.6 mmol/L (21-32) 08/04/17 11:56 BUN 13 mg/dL (7-18) 08/04/17 11:56 Creatinine 1.05 mg/dL (0.55-1.02) H 08/04/17 11:56 Est GFR (MDRD) Af Amer > 60 (>60) 08/04/17 11:56 Est GFR (MDRD) Non-Af > 60 (>60) 08/04/17 11:56 Glucose 109 mg/dL (65-99) H 08/04/17 11:56 Calcium 8.6 mg/dL (8.5-10.1) 08/04/17 11:56 Corrected Calcium 9.2 mg/dL (8.5-10.1) 08/04/17 11:56 Total Bilirubin 0.20 mg/dL (0.2-1.0) 08/04/17 11:56 AST 18 Units/L (15-37) 08/04/17 11:56 ALT 21 Units/L (12-78) 08/04/17 11:56 Alkaline Phosphatase 83 Units/L (46-116) 08/04/17 11:56 Creatine Kinase 174 Units/L (26-192) 08/04/17 11:56 CK-MB (CK-2) 2.6 ng/mL (0-4.0) 08/04/17 11:56 CK/CKMB % Calc 1.5 % (<4) 08/04/17 11:56 Troponin I < 0.02 ng/mL (0-1.5) 08/04/17 11:56 Total Protein 6.7 g/dL (6.4-8.2) 08/04/17 11:56 Albumin 3.2 g/dL (3.4-5.0) L 08/04/17 11:56 Globulin 3.5 g/dL (2.5-4.5) 08/04/17 11:56 Albumin/Globulin Ratio 0.9 Ratio (1.1-2.1) L 08/04/17 11:56 - XRAY XRAY Findings: - EKG Rhythm: NSR (EKG NOTED) - Diagnosis Discharge Problem: History of DVT (deep vein thrombosis) Chest pain Qualifiers: Chest pain type: precordial pain Qualified Code(s): R07.2 - Precordial pain - Discharge Plan Disposition: HOME, SELF-CARE Condition: Stable - Follow ups/Referrals Follow ups/Referrals: MELANY JASON [Primary Care Provider] - 08/05/17 - Instructions Instructions: Chest Pain Observation Additional Instructions: RETURN TO ED IF WORSE. SEE DR. BARKER IN AM IN HIS OFFICE.
[2017-08-04] MEDS ORDERED: PHENERGAN INJ 25 MG ONE (12:24)
[2017-08-04] MEDS ORDERED: MORPHINE SULFATE INJ 4 MG ONE (12:24)
[2017-08-04 12:28] LABS: BASOPHILS % (AUTO) 0.6 % (0.2-1.0); EOSINOPHILS # (AUTO) 0.1 x10^3/uL (0.0-0.2); EOSINOPHILS % (AUTO) 2.1 % (0.9-2.9); HEMATOCRIT 33.7 % (36.0-47.0); HEMOGLOBIN 11.5 g/dL (12.0-16.0); LYMPHOCYTES # (AUTO) 2.3 X10^3/uL (1.3-2.9); LYMPHOCYTES % (AUTO) 46.1 % (21.0-51.0); MEAN CORPUSCULAR HEMOGLOBIN 28.8 pg (27.0-34.0); MEAN CORPUSCULAR HGB CONC 34.2 g/dL (33.0-35.0); MEAN CORPUSCULAR VOLUME 84.1 fL (80.0-100.0); MONOCYTES # (AUTO) 0.4 x10^3/uL (0.3-0.8); NEUTROPHILS # (AUTO) 2.2 x10^3/uL (2.2-4.8); NEUTROPHILS % (AUTO) 43.2 % (42.0-75.0); PLATELET COUNT 264 X10^3/uL (150.0-450.0); RED BLOOD COUNT 4.01 X10^6/uL (3.5-5.4); RED CELL DISTRIBUTION WIDTH 13.6 % (11.6-16.5)
[2017-08-04 12:50] LABS: BLOOD UREA NITROGEN 13 mg/dL (7-18); CALCIUM 8.6 mg/dL (8.5-10.1); CARBON DIOXIDE 29.6 mmol/L (21-32); CHLORIDE 106 mmol/L (98-107); CREATININE 1.05 mg/dL (0.55-1.02); SODIUM 142 mmol/L (136-145); TROPONIN I < 0.02 ng/mL (0-1.5); eGFR BLACK RACES > 60 (>60); eGFR NON BLACK RACES > 60 (>60)
[2017-08-04 12:54] LABS: ALANINE AMINOTRANSFERASE 21 Units/L (12-78); ALBUMIN 3.2 g/dL (3.4-5.0); ALKALINE PHOSPHATASE 83 Units/L (46-116); ASPARTATE AMINO TRANSFERASE 18 Units/L (15-37); CKMB % 1.5 % (<4); COR CA(FOR HYPOALB) 9.2 mg/dL (8.5-10.1); CREATINE KINASE 174 Units/L (26-192); CREATINE KINASE MB 2.6 ng/mL (0-4.0); TOTAL PROTEIN 6.7 g/dL (6.4-8.2)
[2017-08-04 13:32] VITALS: BP 131/64
[2017-08-04] MEDS ORDERED: ELIQUIS PO ONE ×2 (13:49→14:02)
[2017-08-04] MEDS ORDERED: COUMADIN TAB 10 MG PO ONE (13:58)
== END 2017-08-04 14:16 | disposition home or self-care (01) ==
LOC: ER 11:16
DX: R07.2 Precordial pain (principal); Z86.718 Personal history of other venous thrombosis and embolism; R07.89 Other chest pain
CPT/HCPCS: 36415; 36591; 80053; 82550; 82553; 84484; 85025; 85378; 85610; 85730; 93005; 93010; 96365; 96374; 96375; 99283; J2270; J2550

== ENCOUNTER 2018-03-25 16:23 | Inpatient (IN) ==
[2018-03-25 16:40] VITALS: BMI 29.9
[2018-03-25] MEDS ORDERED: HEPARIN SODIUM IN D5W 25,000 UNITS/500 ML BAG IV PRN (17:04)
--- NOTE | 2018-03-25 17:06 | DR.GENAD ---
HPI Time Seen Time Seen by Provider: 03/25/18 17:01 PCP Primary Care Physician: lillian ramírez HPI Comment HPI Comment: SHEDULE FOR CHOLECYSTECTOMY THIS MONTH NOW HAVING ABDOMINAL PAIN IN THE RUG WITH NAUSEA. NO FEVER. DENIES DIARRHEA OR CONSTIPATION. Complaint/Symptoms Chief Complaint Doctors Comments: ABDOMINAL PAIN WITH NAUSEA. Chief Complaint:: "gallbladder is hurting" Nurses notes reviewed Nurses Notes Review: Yes Source History Provided: Patient Mode of Arrival Mode of Arrival: Ambulatory Timing Onset of Chief Complaint: 03/21/18 Came on: Gradually Duration Duration: Constant Duration: Days Severity Severity: Moderate Modifying Factors Worsens:: NONE Improves:: NONE PMH PMH Past Medical History: Yes Past Medical History: Anxiety, COPD, Depression, GERD, Headaches, Kidney Stones , Seizures and Sleep Apnea Past Surgical History: Yes Surgical History: and Hysterectomy Past Surgical History Comment: lamectomy, post lumbar port, double masectomy Family History History of Family Medical Conditions: Yes Family Medical History: Diabetes Mellitus, Cancer and [place] Social History Does patient currently use any type of tobacco product: No Have you used tobacco products in the last 12 months: No Type of Tobacco Use: None Does any household member use tobacco: No Alcohol Use: None Do you use any recreational Drugs:: No Lives With: Family Lives Where: Home infectious screening In the last 2 months have you had wt loss of >10#?: NO Have you had fever, night sweats or hemotysis?: No Have you traveled outside the country in the last 6 months?: No Isolation: Standard ROS Review of Systems Constitutional: No Symptoms Reported; negative Chills and Fever Eyes: No Symptoms Reported ENTM: No Symptoms Reported Respiratoy: No Symptoms Reported Cardiovascular: No Symptoms Reported Gastrointestinal/Abdominal: Abdominal Pain and Nausea Genitourinary: No Symptoms Reported Neurological: Headache Musculoskeletal: No Symptoms Reported Integumentary: No Symptoms Reported Hematologic/Lymphatic: Blood Clots, Easy Bleeding and Easy Bruising Endocrine: No Symptoms Reported Psychiatric: No Symptoms Reported All Other Systems: Reviewed and Negative PE Vital Signs Vitals: Temperature 97.5 F Pulse Rate [Left Apical] 90 Pulse Rate 100 Respiratory Rate 20 Blood Pressure [Left Arm] 122/85 Blood Pressure [Right Calf] 138/72 Blood Pressure [Left Calf] 131/64 Blood Pressure [Right Arm] 116/75 Blood Pressure 138/72 O2 Sat by Pulse Oximetry 91 General Limitations: No Limitations General Appearance: Alert and In No Apparent Distress Head Head Exam: Normal Inspection and Atraumatic Eyes Eye exam: Normal Appearance, PERRL and EOMI; negative Scleral Icterus and Conjunctival Injection ENT ENT Exam: Normal Exam and Normal Oropharynx External Ear Exam: Normal External Inspection TM/Canal Exam: Bilateral: Normal Nose Exam: Normal Nose Exam Mouth Exam: Normal Inspection Throat Exam: Normal Inspection Neck Neck Exam: Normal Inspection and Trachea Midline; negative Tenderness, Meningismus and Lymphadenopathy Chest Chest Inspection: Normal Inspection and Symmetric Chest Wall Rise Respiratory Respiratory Exam: Normal Lung Sounds Bilat Respiratory Exam: Bilateral: Rhonchi and Lower: Rhonchi Cardiovascular Cardiovascular Exam: Regular Rate and Normal Rhythm Abdominal Exam Abdominal Exam: Normal Bowel Sounds, Soft and Tenderness Abdominal Tenderness: RUQ, LUQ, Epigastrium and Moderate Extremities Extremities Exam: Normal Inspection Back Back Exam: Paraspinal Tenderness Neurologic Neurological Exam: Alert, Oriented X3 and CN II-XII Intact; negative Motor Sensory Deficit Psychiatric Psychiatric Exam: Normal Affect and Normal Mood Skin Skin Exam: Warm, Dry, Intact and Normal Color MDM Differential Diagnosis Differential Diagnosis: ABDOMINA PAIN, CHOLELITHIASIS, HISTORY PE. COURSE Treatment Treatment: SEE ORDERS. Consultation Consultation Comments: DISCUSS PATIENT WITH DR. MCCLOUD. HE WILL ADMIT PATIENT. Education/Counseling Education/Counseling: Patient Educated On: Diagnosis ROR Labs Reviewed Laboratory Results Reviewed?: Yes Result Diagrams: 03/26/18 05:09 03/26/18 05:09 Laboratory: WBC 6.3 X10^3/uL (3.6-10.0) 03/26/18 05:09 RBC 4.34 X10^6/uL (3.5-5.4) 03/26/18 05:09 Hgb 12.5 g/dL (12.0-16.0) 03/26/18 05:09 Hct 36.6 % (36.0-47.0) 03/26/18 05:09 MCV 84.3 fL (80.0-100.0) 03/26/18 05:09 MCH 28.7 pg (27.0-34.0) 03/26/18 05:09 MCHC 34.1 g/dL (33.0-35.0) 03/26/18 05:09 RDW 13.5 % (11.6-16.5) 03/26/18 05:09 Plt Count 256 X10^3/uL (150.0-450.0) 03/26/18 05:09 MPV 8.7 fL (7.4-11.0) 03/26/18 05:09 Neut % (Auto) 38.1 % (42.0-75.0) L 03/26/18 05:09 Lymph % (Auto) 53.5 % (21.0-51.0) H 03/26/18 05:09 Powell % (Auto) 5.9 % (0.0-13.0) 03/26/18 05:09 Eos % (Auto) 1.5 % (0.9-2.9) 03/26/18 05:09 Baso % (Auto) 1.0 % (0.2-1.0) 03/26/18 05:09 Neut # (Auto) 2.4 x10^3/uL (2.2-4.8) 03/26/18 05:09 Lymph # (Auto) 3.4 X10^3/uL (1.3-2.9) H 03/26/18 05:09 Powell # (Auto) 0.4 x10^3/uL (0.3-0.8) 03/26/18 05:09 Eos # (Auto) 0.1 x10^3/uL (0.0-0.2) 03/26/18 05:09 Baso # (Auto) 0.1 X10^3/uL (0.0-0.1) 03/26/18 05:09 Absolute Nucleated RBC 0.1 /100WBC 03/26/18 05:09 INR Target Range - 03/25/18 17:20 INR 1.03 (0.8-1.3) 03/25/18 17:20 APTT > 293.0 SECONDS (22.9-36.5) H* 03/26/18 00:20 PTT Comment - 03/26/18 00:20 Sodium 140 mmol/L (136-145) 03/26/18 05:09 Corrected Sodium TNP 03/26/18 05:09 Potassium 4.0 mmol/L (3.5-5.1) 03/26/18 05:09 Chloride 104 mmol/L (98-107) 03/26/18 05:09 Carbon Dioxide 30.7 mmol/L (21-32) 03/26/18 05:09 BUN 9 mg/dL (7-18) 03/26/18 05:09 Creatinine 1.06 mg/dL (0.55-1.02) H 03/26/18 05:09 Est GFR (MDRD) Af Amer > 60 (>60) 03/26/18 05:09 Est GFR (MDRD) Non-Af > 60 (>60) 03/26/18 05:09 Glucose 94 mg/dL (65-99) 03/26/18 05:09 Calcium 8.6 mg/dL (8.5-10.1) 03/26/18 05:09 Corrected Calcium TNP 03/26/18 05:09 Total Bilirubin 0.30 mg/dL (0.2-1.0) 03/26/18 05:09 AST 17 Units/L (15-37) 03/26/18 05:09 ALT 16 Units/L (12-78) 03/26/18 05:09 Alkaline Phosphatase 93 Units/L (46-116) 03/26/18 05:09 Total Protein 7.0 g/dL (6.4-8.2) 03/26/18 05:09 Albumin 3.4 g/dL (3.4-5.0) 03/26/18 05:09 Globulin 3.6 g/dL (2.5-4.5) 03/26/18 05:09 Albumin/Globulin Ratio 0.9 Ratio (1.1-2.1) L 03/26/18 05:09 Amylase 123 Units/L (25-115) H 03/25/18 17:20 Lipase 142 Units/L (73-393) 03/25/18 17:20 Specimen Type Clean catch urine 03/25/18 19:20 Urine Color Yellow (YELLOW) 03/25/18 19:20 Urine Appearance Clear (CLEAR) 03/25/18 19:20 Urine pH 6.0 (5.0 - 8.0) 03/25/18 19:20 Ur Specific Taylor 1.015 (1.000-1.030) 03/25/18 19:20 Urine Protein Negative (NEGATIVE) 03/25/18 19:20 Urine Glucose (UA) Negative (NEGATIVE) 03/25/18 19:20 Urine Ketones Negative (NEGATIVE) 03/25/18 19:20 Urine Occult Blood Negative (NEGATIVE) 03/25/18 19:20 Urine Nitrite Negative (NEGATIVE) 03/25/18 19:20 Urine Bilirubin Negative (NEGATIVE) 03/25/18 19:20 Urine Urobilinogen Normal (NORMAL) 03/25/18 19:20 Ur Leukocyte Esterase Negative (NEGATIVE) 03/25/18 19:20 Diagnosis Discharge Problem: Abdominal pain, Cholelithiasis
[2018-03-25 17:32] LABS: BASOPHILS # (AUTO) 0.1 X10^3/uL (0.0-0.1); EOSINOPHILS # (AUTO) 0.1 x10^3/uL (0.0-0.2); EOSINOPHILS % (AUTO) 1.5 % (0.9-2.9); HEMOGLOBIN 13.9 g/dL (12.0-16.0); LYMPHOCYTES # (AUTO) 2.2 X10^3/uL (1.3-2.9); LYMPHOCYTES % (AUTO) 42.3 % (21.0-51.0); MEAN CORPUSCULAR HEMOGLOBIN 28.8 pg (27.0-34.0); MEAN CORPUSCULAR HGB CONC 33.9 g/dL (33.0-35.0); MONOCYTES # (AUTO) 0.3 x10^3/uL (0.3-0.8); MONOCYTES % (AUTO) 5.4 % (0.0-13.0); NEUTROPHILS # (AUTO) 2.5 x10^3/uL (2.2-4.8); NEUTROPHILS % (AUTO) 49.8 % (42.0-75.0); PLATELET COUNT 298 X10^3/uL (150.0-450.0); RED BLOOD COUNT 4.83 X10^6/uL (3.5-5.4); RED CELL DISTRIBUTION WIDTH 13.8 % (11.6-16.5); WHITE BLOOD COUNT 5.1 X10^3/uL (3.6-10.0)
[2018-03-25 17:44] LABS: ALANINE AMINOTRANSFERASE 17 Units/L (12-78); ALBUMIN 3.9 g/dL (3.4-5.0); ALKALINE PHOSPHATASE 109 Units/L (46-116); AMYLASE 123 Units/L (25-115); ASPARTATE AMINO TRANSFERASE 15 Units/L (15-37); BLOOD UREA NITROGEN 10 mg/dL (7-18); CALCIUM 8.8 mg/dL (8.5-10.1); CARBON DIOXIDE 32.4 mmol/L (21-32); CHLORIDE 103 mmol/L (98-107); CREATININE 1.11 mg/dL (0.55-1.02); LIPASE 142 Units/L (73-393); SODIUM 141 mmol/L (136-145); TOTAL PROTEIN 8.1 g/dL (6.4-8.2); eGFR NON BLACK RACES 57 (>60)
[2018-03-25] MEDS ORDERED: HEPARIN SODIUM INJ 5000 UNITS ONE (18:08)
[2018-03-25] MEDS ORDERED: HEPARIN SODIUM INJ 5000 UNITS IVP ONE (18:15)
[2018-03-25] MEDS ORDERED: PHENERGAN INJ 25 MG ONE (18:22)
[2018-03-25] MEDS ORDERED: BENADRYL INJ 50 MG VIAL ONE (18:22)
[2018-03-25] MEDS ORDERED: MORPHINE SULFATE INJ 4 MG ONE (18:23)
[2018-03-25] MEDS ORDERED: PHENERGAN INJ 25 MG IV ONE (18:30)
[2018-03-25] MEDS ORDERED: MORPHINE SULFATE INJ 4 MG IVP ONE (18:30)
[2018-03-25] MEDS ORDERED: BENADRYL INJ 50 MG VIAL IVP ONE (18:31)
[2018-03-25 19:54] LABS: BILIRUBIN,URINE NEGATIVE (NEGATIVE); BLOOD/HEMOGLOBIN,URINE NEGATIVE (NEGATIVE); GLUCOSE, URINE NEGATIVE (NEGATIVE); KETONES,URINE NEGATIVE (NEGATIVE); LEUKOCYTE ESTERASE ,URINE NEGATIVE (NEGATIVE); NITRITES,URINE NEGATIVE (NEGATIVE); PROTEIN,URINE NEGATIVE (NEGATIVE); UROBILINOGEN,URINE NORMAL (NORMAL)
[2018-03-25 19:55] LABS: APPEARANCE,URINE CLEAR (CLEAR); COLOR,URINE YELLOW (YELLOW)
[2018-03-25] MEDS: MORPHINE SULFATE INJ 4 MG IVP PRN (22:42)
[2018-03-26] MEDS: BENADRYL INJ 50 MG VIAL IVP PRN ×5 (00:01→20:43)
[2018-03-26] MEDS: PHENERGAN INJ 25 MG IV PRN ×3 (00:02→16:31)
[2018-03-26] MEDS: MORPHINE SULFATE INJ 4 MG IVP PRN ×4 (02:46→20:44)
[2018-03-26 05:54] LABS: BASOPHILS # (AUTO) 0.1 X10^3/uL (0.0-0.1); EOSINOPHILS # (AUTO) 0.1 x10^3/uL (0.0-0.2); EOSINOPHILS % (AUTO) 1.5 % (0.9-2.9); HEMATOCRIT 36.6 % (36.0-47.0); HEMOGLOBIN 12.5 g/dL (12.0-16.0); LYMPHOCYTES # (AUTO) 3.4 X10^3/uL (1.3-2.9); LYMPHOCYTES % (AUTO) 53.5 % (21.0-51.0); MEAN CORPUSCULAR HEMOGLOBIN 28.7 pg (27.0-34.0); MEAN CORPUSCULAR HGB CONC 34.1 g/dL (33.0-35.0); MEAN CORPUSCULAR VOLUME 84.3 fL (80.0-100.0); MEAN PLATELET VOLUME 8.7 fL (7.4-11.0); MONOCYTES # (AUTO) 0.4 x10^3/uL (0.3-0.8); MONOCYTES % (AUTO) 5.9 % (0.0-13.0); NEUTROPHILS # (AUTO) 2.4 x10^3/uL (2.2-4.8); NEUTROPHILS % (AUTO) 38.1 % (42.0-75.0); PLATELET COUNT 256 X10^3/uL (150.0-450.0); RED BLOOD COUNT 4.34 X10^6/uL (3.5-5.4); RED CELL DISTRIBUTION WIDTH 13.5 % (11.6-16.5); WHITE BLOOD COUNT 6.3 X10^3/uL (3.6-10.0)
[2018-03-26 06:04] LABS: ALANINE AMINOTRANSFERASE 16 Units/L (12-78); ALBUMIN 3.4 g/dL (3.4-5.0); ALKALINE PHOSPHATASE 93 Units/L (46-116); ASPARTATE AMINO TRANSFERASE 17 Units/L (15-37); BLOOD UREA NITROGEN 9 mg/dL (7-18); CALCIUM 8.6 mg/dL (8.5-10.1); CARBON DIOXIDE 30.7 mmol/L (21-32); CHLORIDE 104 mmol/L (98-107); CREATININE 1.06 mg/dL (0.55-1.02); SODIUM 140 mmol/L (136-145); eGFR NON BLACK RACES > 60 (>60)
[2018-03-26] MEDS ORDERED: NS 1000 ML 1,000 ML ONE (10:57)
[2018-03-26] MEDS ORDERED: CLEOCIN 600 MG IV PREMIX 600 MG/50 ML BAG IV ONE (10:58)
[2018-03-26] MEDS ORDERED: FENTANYL INJ 250 mcg ONE (12:13)
[2018-03-26] MEDS ORDERED: NS IRRIGATION 3000 ML IR ONE (12:53)
[2018-03-26] MEDS ORDERED: DILAUDID INJ IVP PRN (13:11)
[2018-03-26] MEDS ORDERED: PHENERGAN INJ 25 MG IVP PRN (13:11)
[2018-03-26] MEDS ORDERED: BENADRYL INJ 50 MG VIAL IVP PRN (13:11)
[2018-03-26] MEDS ORDERED: REGLAN INJ 10 MG VIAL IVP PRN (13:11)
--- NOTE | 2018-03-26 13:17 | DR.H&P ---
H&P - History & Physical for Day of: H&P Date: 03/25/18 - Chief Complaint Chief Complaint: RIGHT UPPER ABDOMINAL PAIN, [place] - History of Present Illness History of Present Illness: 42 BF ER ADMISSION AFTER PRESENTING WITH CO RUQ PAIN , DX WITH GALLSTONES. PT HAD AMYLASE AND LIPASE WITH ELEVATION IN AMYLASE, PT NPO ADMITTED FOR SURGICAL CONSULT. PT HAS PMH OF COPD, GERD, HYPERCOAGULATION DISORDER. PT STATES SHE HAS BEEN ON ELIQUIS PRIOR TO ADMISSION. - Past Medical History Past Medical History: Depression, Anxiety, Seizures, COPD, GERD, Kidney Stones, Headaches, Sleep Apnea Additional Medical History: Retinal Detachment, Pulmonary Embolism, Sleep Apnea , GI Ulcer, Hiatal Hernia, Gastric Ulcer, Fibroids, Back Pain, Hypercoagulability, Ovarian Cancer-stage 0, Pancreatic Tumor, Positive for BRCA gene 1 and 2 - Past Surgical History Surgical History: , Hysterectomy Additional Surgical History: IVC Filter, Smart Port Placement, Double Mastectomy , 3 Back Surgeries, Lumbar Lamenectomy, Anterior and Posterior spinal funsion, Laser Eye surgery on Left to repair Retinal Detachement, Bone Marrow Transplant - Family History Family Medical History: Diabetes Mellitus, Cancer, [place] - Social History Does patient currently use any type of tobacco product: No Have you used tobacco products in the last 12 months: No Type of Tobacco Use: None Does any household member use tobacco: No Alcohol Use: None Drug Use: None - Medications Home Medications: REGLA Inhibitors Allergy (Verified 07/22/17 14:59) bupivacaine Allergy (Verified 07/22/17 14:59) codeine Allergy (Verified 07/22/17 14:59) iodine Allergy (Verified 07/22/17 14:59) ketorolac [From Toradol] Allergy (Verified 07/22/17 14:59) latex Allergy (Verified 07/22/17 14:59) lisinopril Allergy (Verified 07/22/17 14:59) meperidine [From Demerol] Allergy (Verified 07/22/17 14:59) ondansetron [From Zofran (as hydrochloride)] Allergy (Verified 07/22/17 14:59) Penicillins Allergy (Verified 07/22/17 14:59) shellfish derived Allergy (Verified 07/22/17 14:59) tramadol Allergy (Verified 07/22/17 14:59) CONTINUE taking the following medications apixaban [Eliquis] 5 mg PO BID 03/25/18 [History] cromolyn 5 mg/kg PO QID 03/25/18 [History] cyclobenzaprine 10 mg PO BID 03/25/18 [History] diazepam 5 mg PO BID 03/25/18 [History] ergocalciferol (vitamin D2) [Vitamin D2] 50,000 unit PO QWEEK 03/25/18 [History] estradiol 1 mg PO QDAY 03/25/18 [History] gabapentin [Neurontin] 100 mg PO QDAY 03/25/18 [History] hydroxyzine HCl 25 mg PO TID-QID PRN 03/25/18 [History] loratadine 10 mg PO QDAY 03/25/18 [History] pantoprazole 40 mg PO QDAY 03/25/18 [History] - Review of Systems Constitutional: No Symptoms Reported ENT: No Symptoms Reported Respiratory: No Symptoms Reported Cardiovascular: No Symptoms Reported Gastrointestinal: Nausea, Abdominal Pain Genitourinary: No Symptoms Reported Skin: No Symptoms Reported Neurological: No Symptoms Reported - Physical Exam Vital Signs: Temperature 98.4 F Pulse Rate [Left Apical] 90 Pulse Rate 61 Respiratory Rate 20 Blood Pressure [Left Arm] 122/72 Blood Pressure [Right Calf] 138/72 Blood Pressure [Left Calf] 131/64 Blood Pressure [Right Arm] 116/75 Blood Pressure 138/78 O2 Sat by Pulse Oximetry 98 Oriented: Normal Eyes: Normal Ear: Normal Nose: Normal Throat: Normal Respiratory: Clear Throughout Cardiovascular: Normal. negative: Edema : Normal Auscultation: Bowel Sounds: Normal Palpation: Normal Tenderness: RUQ, Epigastric Skin: Normal Musculoskeletal: Normal Psychiatric: Anxiety Affect: Anxious Speech Pattern: Clear, Appropriate - Assessment/Plan (1) Abdominal pain Qualifiers: Abdominal location: left lower quadrant Qualified Code(s): R10.32 - Left lower quadrant pain Status: Acute Plan: ADMIT, AM LABS. VERIFY HOME MEDS, HOLD ELIQUIS, HEPARIN THERAPY. CXR ON ADMISSION,EKG. BP CONTROL, PAIN AND NAUSEA CONTROL. CONSULT DR CHEN (2) Cholelithiasis Qualifiers: Cholelithiasis location: gallbladder Cholecystitis presence: without cholecystitis Biliary obstruction: without biliary obstruction Qualified Code(s): K80.20 - Calculus of gallbladder without cholecystitis without obstruction Status: Acute (3) Hx of pulmonary embolus Status: Chronic (4) Depression Status: Chronic (5) Anxiety Status: Chronic (6) GERD (gastroesophageal reflux disease) Status: Chronic - Allergies Allergies/Adverse Reactions: Allergies Allergy/AdvReac Type Severity Reaction Status Date / Time REGLA Inhibitors Allergy Verified 07/22/17 14:59 bupivacaine Allergy Verified 07/22/17 14:59 codeine Allergy Verified 07/22/17 14:59 iodine Allergy Verified 07/22/17 14:59 ketorolac [From Toradol] Allergy Verified 07/22/17 14:59 latex Allergy Verified 07/22/17 14:59 lisinopril Allergy Verified 07/22/17 14:59 meperidine [From Demerol] Allergy Verified 07/22/17 14:59 ondansetron Allergy Verified 07/22/17 14:59 [From Zofran (as hydrochloride)] Penicillins Allergy Verified 07/22/17 14:59 shellfish derived Allergy Verified 07/22/17 14:59 tramadol Allergy Verified 07/22/17 14:59
[2018-03-26] MEDS ORDERED: BACTROBAN TOPICAL OINT ONE (13:30)
[2018-03-26] MEDS ORDERED: BENADRYL INJ 50 MG VIAL ONE (14:00)
[2018-03-26] MEDS ORDERED: DILAUDID INJ ONE (14:00)
[2018-03-26] MEDS: DILAUDID INJ IVP PRN ×4 (14:05→14:20)
[2018-03-26] MEDS ORDERED: ATIVAN TAB 1 MG ONE (14:20)
[2018-03-26] MEDS ORDERED: ATIVAN INJ 2 MG VIAL IVP ONE (14:20)
[2018-03-26] MEDS ORDERED: SOLU-Medrol 125 MG VIAL ONE (14:20)
[2018-03-26] MEDS ORDERED: ATIVAN INJ 2 MG VIAL ONE (14:22)
[2018-03-26] MEDS ORDERED: SOLU-Medrol 40 MG VIAL IVP ONE (14:28)
--- NOTE | 2018-03-26 14:47 | OR.GENERIC ---
Post-Op Note Generic - Post-Op Note Operative Report: diagnostic laparoscopy , lysis of adhesiopns , and lap gladys .. findings :abdominal adhesions and adhesions around the GB which was distended and contain small stones . did well , will keep on clear liquid , start her anticoagulants and d/c in am .. EBL 10 cc
[2018-03-26] MEDS: D5 1/2 NS 1000 ML 1,000 ML IV SCH ×2 (15:05→23:44)
[2018-03-26] MEDS ORDERED: BENADRYL CAP/TAB 25 MG PO ONE (15:32)
[2018-03-26] MEDS: ELIQUIS PO SCH (20:45)
[2018-03-27] MEDS: MORPHINE SULFATE INJ 4 MG IVP PRN ×2 (01:07→08:05)
[2018-03-27] MEDS: D5 1/2 NS 1000 ML 1,000 ML IV SCH ×2 (02:59→07:57)
[2018-03-27] MEDS: BENADRYL INJ 50 MG VIAL IVP PRN ×2 (03:00→08:59)
[2018-03-27] MEDS: PHENERGAN INJ 25 MG IV PRN ×2 (03:06→08:06)
[2018-03-27 05:32] LABS: BASOPHILS # (AUTO) 0.1 X10^3/uL (0.0-0.1); BASOPHILS % (AUTO) 0.7 % (0.2-1.0); EOSINOPHILS % (AUTO) 0.2 % (0.9-2.9); HEMATOCRIT 38.1 % (36.0-47.0); HEMOGLOBIN 13.1 g/dL (12.0-16.0); LYMPHOCYTES # (AUTO) 0.9 X10^3/uL (1.3-2.9); LYMPHOCYTES % (AUTO) 7.4 % (21.0-51.0); MEAN CORPUSCULAR HEMOGLOBIN 28.9 pg (27.0-34.0); MEAN CORPUSCULAR HGB CONC 34.4 g/dL (33.0-35.0); MEAN CORPUSCULAR VOLUME 84.1 fL (80.0-100.0); MEAN PLATELET VOLUME 8.3 fL (7.4-11.0); MONOCYTES # (AUTO) 0.5 x10^3/uL (0.3-0.8); MONOCYTES % (AUTO) 4.2 % (0.0-13.0); NEUTROPHILS # (AUTO) 11.1 x10^3/uL (2.2-4.8); NEUTROPHILS % (AUTO) 87.5 % (42.0-75.0); PLATELET COUNT 305 X10^3/uL (150.0-450.0); RED BLOOD COUNT 4.53 X10^6/uL (3.5-5.4); RED CELL DISTRIBUTION WIDTH 13.3 % (11.6-16.5); WHITE BLOOD COUNT 12.7 X10^3/uL (3.6-10.0)
[2018-03-27 05:57] LABS: ALANINE AMINOTRANSFERASE 47 Units/L (12-78); ALBUMIN 3.5 g/dL (3.4-5.0); ALKALINE PHOSPHATASE 97 Units/L (46-116); ASPARTATE AMINO TRANSFERASE 53 Units/L (15-37); BLOOD UREA NITROGEN 6 mg/dL (7-18); CALCIUM 8.8 mg/dL (8.5-10.1); CARBON DIOXIDE 28.3 mmol/L (21-32); CHLORIDE 103 mmol/L (98-107); COR NA(FOR HYPERGLY) 138 mmol/L (136-145); CREATININE 1.08 mg/dL (0.55-1.02); SODIUM 138 mmol/L (136-145); TOTAL PROTEIN 7.7 g/dL (6.4-8.2); eGFR NON BLACK RACES 59 (>60)
[2018-03-27] MEDS: ELIQUIS PO SCH (08:05)
[2018-03-27] MEDS ORDERED: HEPARIN SODIUM INJ 5000 UNITS IVP ONE (09:51)
[2018-03-27 10:05] VITALS: BP 134/80
== END 2018-03-27 10:53 | disposition home or self-care (01) | DRG 446 ==
LOC: ER 16:26 → ICU 18:20
PROVIDERS: ADMIT Internal Medicine; ATTEND Internal Medicine
DX: K80.10 Calculus of gallbladder with chronic cholecystitis without obstruction; Z86.711 Personal history of pulmonary embolism; K21.9 Gastro-esophageal reflux disease without esophagitis; F41.8 Other specified anxiety disorders; K66.0 Peritoneal adhesions (postprocedural) (postinfection); R10.32 Left lower quadrant pain; K82.8 Other specified diseases of gallbladder; F32.89 Other specified depressive episodes; J44.9 Chronic obstructive pulmonary disease, unspecified
CPT/HCPCS: 36415; 80053; 81003; 82150; 83690; 85025; 85610; 85730; 88304; 96365; 96374; 96375; 99282; 99285; A4222; J1170; J1200; J1642; J1644; J2060; J2270; J2550; J2930; J3010; J3490; J7030; S0077; S5010